=== PATIENT | female | born 1950 | race Caucasian/White ===

== ENCOUNTER 2016-07-18 11:23 | Inpatient (IN) | payer MEDICARE, OTHER ==
--- OUTSIDE RECORDS SUMMARY | 2016-07-18 11:32 | XMS REPORT | Continuity of Care Document ---
:1950 Author Organization [employer] [place] [address] Care Team Providers Name Role Phone Marcia Dumont Primary Care Provider [phone] Source Comments This disclosure is being made pursuant to the [employer] program and maynot contain all information available regarding this patient.[employer] Active Allergies and Adverse Reactions No Known Allergies Current Medications Be aware that medications may not be up to date as of this document. Alwaysverify current medications with the patient. Prescription Sig. Disp. Refills Start Date End Date Status gabapentin Take 1,800 mg Active (NEURONTIN) 600 MG by mouth tablet nightly. lamoTRIgine Take 400 mg by Active (LAMICTAL) 200 MG mouth nightly. tablet pramipexole Take 2 mg by Active (MIRAPEX) 1 MG mouth nightly. tablet levothyroxine Take 75 mcg by Active (SYNTHROID, mouth every LEVOTHROID) 75 MCG morning. tablet irbesartan (AVAPRO) Take 300 mg by Active 300 MG tablet mouth daily. Calcium Take 1 tablet Active Carbonate-Vitamin D by mouth (CALCIUM + D PO) daily. furosemide (LASIX) Take 40 mg by Active 20 MG tablet mouth daily. simvastatin (ZOCOR) Take 40 mg by Active 40 MG tablet mouth nightly. metFORMIN Take 500 mg by Active (GLUCOPHAGE) 500 MG mouth 2 (two) tablet times daily with meals. ibandronate (BONIVA) Take 150 mg by Active 150 MG tablet mouth every 30 (thirty) days. mometasone-formotero Inhale 2 puffs Active l (DULERA) 200-5 into the lungs MCG/ACT AERO inhaler 2 (two) times daily as needed. fexofenadine Take 180 mg by Active (ASIA) 180 MG mouth daily as tablet needed. potassium chloride Take 20 mEq by Active SA (K-DUR,KLOR-CON) mouth daily. 20 MEQ tablet LORazepam (ATIVAN) Take 0.5 mg by Active 0.5 MG tablet mouth every 6 (six) hours as needed for Anxiety. meloxicam (MOBIC) 15 Take 15 mg by Active MG tablet mouth daily. metoprolol tartrate Take 50 mg by Active (LOPRESSOR) 25 MG mouth 2 (two) tablet times daily. ziprasidone (GEODON) Take 40 mg by Active 40 MG capsule mouth every evening. sucralfate Take 1 tablet 120 tablet 4 09/16/2015 Active (CARAFATE) 1 G by mouth 4 tablet (four) times daily. NIFEdipine Take 60 mg by Active (PROCARDIA XL) 60 MG mouth every 24 hr tablet morning. albuterol (PROAIR Inhale 2 puffs Active HFA;PROVENTIL into the lungs HFA;VENTOLIN HFA) every 4 (four) 108 (90 Base) hours as MCG/ACT inhaler needed for Wheezing. conjugated estrogens Place Active (PREMARIN) vaginal vaginally cream daily. Multiple Take 1 capsule Active Vitamins-Minerals by mouth (PRESERVISION AREDS) daily. CAPS capsule baclofen (LIORESAL) Take 10 mg by Active 10 MG tablet mouth 2 (two) times daily. Cyanocobalamin Take 1,000 mcg Active (VITAMIN B 12 PO) by mouth daily. aspirin 325 MG EC Take 325 mg by Active tablet mouth daily. tolterodine (DETROL Take 4 mg by Discontinued LA) 4 MG 24 hr mouth daily. 7 capsule Active Problems Problem Noted Date Hiatal hernia 06/20/2016 Chronic gastroesophageal reflux disease 09/16/2015 Esophageal dysphagia 03/10/2015 Epigastric pain 03/10/2015 Gastritis determined by endoscopy 03/10/2015 Nausea & vomiting 03/24/2014 Abdominal pain 03/24/2014 Gastroesophageal reflux disease 03/24/2014 Rectal bleeding 03/24/2014 Spasm of esophagus 03/24/2014 Gastritis 03/24/2014 Dysphagia, unspecified(787.20) 01/01/2013 Esophageal spasm 01/01/2013 Other specified gastritis without mention of hemorrhage 01/01/2013 Most Recent Encounters Date Type Specialty Providers Description Data Import 7 [facility] James, Anju Encounter MD [facility] G[facility] James, ENDO - 7 MD Lolly ESOPHAGOGASTRODUODENOSCOPY with bx's, with esophageal dilatation with 51 savary Immunizations Name Dates Previously Given Next Due Influenza Split 01/03/2012 Pneumococcal Polysaccharide-23 Td, preservative free 02/16/2010 Social History Tobacco Use Types Packs/Day Years Used Date Former Smoker 2 25 Comments:quit 1992 Alcohol Use Drinks/Week oz/Week Comments No Alcoholic Drinks/day: History of Alcohol Use Denied Last Filed Vital Signs Vital Sign [place] Time Taken Blood Pressure 133/68 06/20/2016 9:32 AM 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 Pulse 83 06/20/2016 9:32 AM 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 Temperature 36.3 C (97.3 F) 06/20/2016 7:53 AM 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 Respiratory Rate 18 06/20/2016 9:32 AM 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 Height 1.562 m (5' 1.5") 06/20/2016 7:53 AM 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 Weight 103.329 kg (227 lb 12.8 oz) 06/20/2016 7:53 AM 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 Body Mass Index 42.35 06/20/2016 7:53 AM 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 Oxygen Saturation 97% 06/20/2016 9:32 AM 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 Plan of Care Health Maintenance Due Date Last Done Comments Mammogram 1998 Well Adult Visit 1998 Zoster Vaccine 60+ 2008 Tetanus/Pertussis (1 - Tdap) 02/17/2010 02/16/2010 Pneumococcal Low/Medium Risk 65+ (1 of 2 - PCV13) 2013 Influenza Immunization (#1) 2015 01/03/2012 Colonoscopy 03/24/2024 03/24/2014 Bone Density Completed 12/15/2015 Procedures from Last 3 Months Procedure Name Priority Date/Time Associated Comments Diagnosis ENDO - ESOPHAGOGASTRODUODENOSCOPY 06/20/2016 8:30 esophageal with bx's, with esophageal AM 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 spasms, hiatal dilatation with 51 savary hernia, gastritis Results from Last 3 Months EKG VIEW RHYTHM STRIP (06/24/2016 10:39 AM)POCT glucose (06/20/2016 8:23 AM) Component Value Range Bedside Glucose 124(H) 70-100 mg/dL Surgical pathology exam (06/20/2016) Narrative CASE: [id number] - SURGICAL PATHOLOGY REPORT - - DIAGNOSIS: A. Duodenum, biopsy: Small intestinal mucosa with preserved villous architecture. Increase of intraepithelial lymphocytes is not appreciated. B. Stomach, biopsy: Inactive chronic gastritis and reactive gastropathy. No Helicobacter organisms identified. Intestinal metaplasia and dysplasia are not appreciated. C. Esophagus, biopsy: Gastric mucosa with mild inactive chronic gastritis. Intestinal metaplasia or dysplasia is not appreciated. Squamous epithelium is not identified. - - - CLINICAL INFORMATION: Pre-op: Esophageal dysphagia - GROSS EXAMINATION: Gross examination performed at [facility], [address] [place] [id number] AN Part A: The specimen container is labeled "duodenal bx." Received in formalin are two stauffer tissue fragments. The largest measuring 0.4 x 0.4 x 0.1 cm. The specimen is entirely submitted in block A in a mesh bag. Part B: The specimen container is labeled "gastric bx." Received in formalin are two stauffer tissue fragments. The largest measuring 0.6 x 0.3 x 0.1 cm. The specimen is entirely submitted in block B in a mesh bag. Part C: The specimen container is labeled "esophageal bx." Received in formalin is a single stauffer tissue fragment measuring 0.6 x 0.4 x 0.1 cm. The specimen is entirely submitted in block C in a mesh bag. - MICROSCOPIC EXAMINATION: Microscopic examination performed at [facility], [address] [place] [address]. Immunostain for H. pylori is performed in part B with satisfactory controls, and it is negative. A PAS/Alcian blue stain is performed in part C with satisfactory controls and is negative for goblet cells and fungi. - - - Final Diagnosis performed by Luz Elena Wetzel M.D. Pathologist Electronically signed 06/22/2016 1:48:15PM - -
--- OUTSIDE RECORDS SUMMARY | 2016-07-18 11:33 | XMS REPORT | Continuity of Care Document ---
:1950 Author Organization [facility] ([facility]) Address [address] [place] [address] Phone [phone] Care Team Providers Name Role Phone Marcia Dumont Primary Care Provider [phone] Source Comments This disclosure is being made pursuant to the Care Everywhere program, applicable federal and state laws, and may not contain all informaitonavailable regarding this patient.[facility] ([facility]) Active Allergies and Adverse Reactions Allergen Noted Date Severity Reactions Comments Adhesive Tape-Silicones 07/09/2015 Rash "PAPER TAPE" Animal Dander 07/09/2015 OTHER Mold 07/09/2015 Asthma Trees 07/09/2015 Asthma Current Medications Prescription Sig. Disp. Refills Start Date End Date Status potassium chloride Take 20 mEq by mouth Active (KLOR-CON) 20 mEq daily. packet levothyroxine Take 75 mcg by mouth Active (LEVOTHROID) 75 mcg every morning before tablet breakfast. gabapentin 50 mg/mL Take 1,200 mg by Active solution mouth 3 times daily. pramipexole 1 mg Take 1 mg by mouth 3 Active tablet times daily. simvastatin (ZOCOR) Take 10 mg by mouth Active 10 mg tablet every evening. lamoTRIgine 200 mg Take 400 mg by mouth Active tablet daily. amLODIPine (NORVASC) Take 10 mg by mouth Active 10 mg tablet daily. furosemide 20 mg Take 0.5 Tabs by 15 Tab 5 03/04/2012 Active tablet mouth daily. Indications: EDEMA, HYPERTENSION estrogens, Daily x2 weeks, 30 g 11 04/02/2015 Active conjugated M/W/F x2 weeks, then (PREMARIN) 0.625 twice weekly after mg/gram vaginal that time cream metoPROLol succinate Take 50 mg by mouth Active 50 mg XL tablet 2 times daily. irbesartan 300 mg 08/10/2015 Active tablet LORazepam 0.5 mg 07/26/2015 Active tablet CALCIUM Active CARBONATE/VITAMIN D2 (CALCIUM + VITAMIN D PO) fexofenadine 180 mg Take 180 mg by mouth Active tablet daily. ibandronate 150 mg Take 150 mg by mouth Active tablet every month. meloxicam 15 mg Take 15 mg by mouth Active tablet daily. mometasone-formotero Use 2 Puffs by Active l (DULERA 200-5) inhalation 2 times inhaler daily. ziprasidone 40 mg Take 40 mg by mouth Active capsule 2 times daily. aspirin 325 mg Take 325 mg by mouth Active tablet daily. lisinopril 40 mg Take 40 mg by mouth Active tablet daily. oxyCODONE-acetaminop Take 1-2 tablets by 45 tablet 0 02/26/2016 Active hen 5-325 mg per mouth every 6 hours tablet as needed for Pain. Do Not exceed 4000 mg of acetaminophen per 24 hours. sucralfate PO Active Active Problems Problem Noted Date Urge incontinence 02/11/2016 OAB (overactive bladder) 10/23/2015 Diplopia 03/02/2012 Unspecified cerebral artery occlusion with cerebral infarction 03/02/2012 Limb weakness 03/02/2012 CAD (coronary artery disease) 03/02/2012 Prediabetes 03/02/2012 Most Recent Encounters Date Type Specialty Providers Description 04/27/2016 Office Visit [facility] Konrad Law MD Dx: Urge incontinence (Primary Dx) 04/21/2016 Office Visit [facility] U[facility]necology Konrad Law MD Dx: Urge incontinence (Primary Dx) Social History Tobacco Use Types Packs/Day Years Used Date Former Smoker Cigarettes 2 25 Quit: 10/15/1992 Smokeless Tobacco: Never Used Tobacco Cessation:Counseling Given: Yes Comments: Alcohol Use Drinks/Week oz/Week Comments No 1 Glasses of wine 0.0 Last Filed Vital Signs Vital Sign [place] Time Taken Blood Pressure 138/78 04/27/2016 9:18 AM 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 Pulse 79 04/27/2016 9:18 AM 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 Temperature 37 C (98.6 F) 02/26/2016 12:00 PM 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 Respiratory Rate 20 02/26/2016 12:45 PM 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 Height 1.562 m (5' 1.5") 02/04/2016 1:19 PM CDT Weight 100.1 kg (220 lb 10.9 oz) 04/27/2016 9:18 AM 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 Body Mass Index 41.03 04/27/2016 9:18 AM 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 Oxygen Saturation 96% 02/26/2016 12:45 PM 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 Plan of Care Date Type Specialty Providers Description 08/10/2016 Appointment [facility] Konrad Law MD Chief Comp: Patient [address] [place] [address] Visit [phone] (Fax) Health Maintenance Due Date Last Done Comments HCV Screening 1950 Hepatitis B Vaccine (1 of 3 - Primary Series) 1950 Tdap Vaccine 08/15/1959 Td Vaccine 1966 Mammogram 1988 Colonoscopy 1998 Zoster Vaccine 2008 Osteoporosis Screening (DXA Bone Density) 2013 Pneumococcal Vaccine (1 of 2 - PCV13) 2013 Influenza Vaccine: Seasonal (#1) 11/16/2015 Lipid Disorder Screening 03/03/2017 03/03/2012 Results from Last 3 Months Not on file
[2016-07-18 12:18] LABS: Hematocrit 38.1 % (37.0-47.0); Mean Cell Volume 89.9 fl (78-100); Mean Corpuscular Hemoglobin 28.3 pg (27-31); Mean Corpuscular Hgb Conc 31.5 g/dl (32-36); Mean Platelet Volume 9.4 fl (6.0-9.5); Neutrophil # 5.9 K/mm3 (1.3-6.0); Platelet Count 291 K/mm3 (150-450); Red Blood Count 4.24 M/mm3 (4.2-5.4); Red Cell Distribution Width 13.6 % (11.5-14.0); White Blood Count 9.3 K/mm3 (4.0-10.5)
[2016-07-18 12:46] LABS: Albumin * 3.6 gm/dl (3.4-5.0); Anion Gap 12.3 mmol/L (6.8-13.8); Bilirubin, Total 0.3 mg/dL (0.0-1.1); Ca. Corrected For Albumin 9.6 mg/dL (8.4-10.2); Calcium * 9.6 mg/dL (7.9-10.9); Potassium 4.3 mmol/L (3.4-4.6)
[2016-07-18] MEDS: METHYLPREDNISOLONE SOD SUCC 60 MG in WATER FOR INJ.,BACTERIOSTATIC 0 ML IV SCH ×2 (13:28→19:24)
[2016-07-18] MEDS ORDERED: ALBUTEROL SULFATE 2.5 MG/3 ML VIAL.NEB IH PRN (14:33)
[2016-07-18] MEDS ORDERED: LORazepam 0.5 MG TABLET PO PRN (14:34)
[2016-07-18] MEDS: ALBUTEROL SULFATE/IPRATROPIUM 3 ML NEBU IH SCH ×3 (14:35→23:33)
[2016-07-18] MEDS ORDERED: IBANDRONATE SODIUM 150 MG PO SCH (14:45)
[2016-07-18] MEDS: GABAPENTIN 600 MG TABLET PO SCH (17:10)
[2016-07-18] MEDS: BENZONATATE 100 MG CAPSULE PO SCH (17:10)
[2016-07-18] MEDS: ZIPRASIDONE HCL 40 MG CAPSULE PO SCH (17:10)
[2016-07-18] MEDS: metFORMIN HCL 500 MG TABLET PO SCH (17:11)
[2016-07-18] MEDS: SIMVASTATIN 10 MG TABLET PO SCH (21:10)
[2016-07-19] MEDS: METHYLPREDNISOLONE SOD SUCC 60 MG in WATER FOR INJ.,BACTERIOSTATIC 0 ML IV SCH ×4 (01:02→19:00)
[2016-07-19] MEDS: ALBUTEROL SULFATE/IPRATROPIUM 3 ML NEBU IH SCH ×5 (02:27→18:23)
[2016-07-19] MEDS: PANTOPRAZOLE SODIUM 40 MG TABLET.EC PO SCH (08:35)
[2016-07-19] MEDS: metFORMIN HCL 500 MG TABLET PO SCH (08:45)
[2016-07-19] MEDS: METOPROLOL SUCCINATE 100 MG TABLET.SA PO SCH (08:46)
[2016-07-19] MEDS: BETA-CAROTENE(A) W-C , E/MIN 1 TAB TABLET PO SCH (08:48)
[2016-07-19] MEDS: LOSARTAN POTASSIUM 50 MG TABLET PO SCH (08:48)
[2016-07-19] MEDS: CHOLECALCIFEROL 1,000 UNIT CAPSULE PO SCH (08:49)
[2016-07-19] MEDS: amLODIPine BESYLATE 10 MG TABLET PO SCH (08:50)
[2016-07-19] MEDS: CYANOCOBALAMIN 1,000 MCG TABLET PO SCH (08:50)
[2016-07-19] MEDS: GABAPENTIN 600 MG TABLET PO SCH ×3 (08:51→17:00)
[2016-07-19] MEDS: BENZONATATE 100 MG CAPSULE PO SCH ×3 (08:51→17:01)
[2016-07-19] MEDS: FUROSEMIDE 40 MG TABLET PO SCH (08:51)
[2016-07-19] MEDS: LORATADINE 10 MG TABLET PO SCH (08:52)
[2016-07-19] MEDS: PRAMIPEXOLE DI-HCL 0.5 MG TABLET PO SCH (08:52)
[2016-07-19 08:53] LABS: Hematocrit 38.4 % (37.0-47.0); Mean Cell Volume 89.9 fl (78-100); Mean Corpuscular Hemoglobin 28.1 pg (27-31); Mean Corpuscular Hgb Conc 31.3 g/dl (32-36); Mean Platelet Volume 9.5 fl (6.0-9.5); Neutrophil # 12.7 K/mm3 (1.3-6.0); Neutrophil % 89.8 % (42-75.0); Platelet Count 313 K/mm3 (150-450); Red Blood Count 4.27 M/mm3 (4.2-5.4); Red Cell Distribution Width 13.8 % (11.5-14.0); White Blood Count 14.2 K/mm3 (4.0-10.5)
[2016-07-19] MEDS: NIFEdipine 30 MG TAB.SR.24H PO SCH (08:53)
[2016-07-19] MEDS: TOLTERODINE TARTRATE 4 MG CAPSULE PO SCH (08:54)
[2016-07-19] MEDS ORDERED: lamoTRIgine 100 MG TABLET PO SCH (09:00)
[2016-07-19] MEDS ORDERED: LISINOPRIL 40 MG TABLET PO SCH (09:00)
[2016-07-19 09:03] LABS: Anion Gap 20.2 mmol/L (6.8-13.8); BUN/Creatinine Ratio 15.9 (9.0-21.6); Calcium * 9.7 mg/dL (7.9-10.9); Carbon Dioxide 21.8 mmol/L (24-32.6); Estimated Creat Clear 29.9
[2016-07-19] MEDS: LEVOTHYROXINE SODIUM 75 MCG TABLET PO SCH (09:08)
[2016-07-19] MEDS ORDERED: ACETAMINOPHEN 325 MG TABLET PO PRN (12:13)
--- NOTE | 2016-07-19 12:48 | PN ---
Progess Note - Interim Narrative: 07/19/16 12:47 Patient still coughing a lot with chest tightness and pain. Will start cristobals Casi.
[2016-07-19] MEDS: ZIPRASIDONE HCL 40 MG CAPSULE PO SCH (17:01)
--- NOTE | 2016-07-19 17:25 | PN ---
Subjective - Date and Time Seen Date: 07/19/16 Time: 17:25 Subjective Narrative: Patient still SOB and wheezing. Objective - Review of Systems Generalized/Overall Review: Denies: Chills, Fever EENTM: Reports: No Symptoms Reported Respiratory: Reports: Cough, Shortness of Breath, Wheezing Cardiac: Denies: Chest Pain, Edema, Palpitations Abdominal: Denies: Nausea, Vomiting Genitourinary Symptoms: Denies: Urgency, Frequency Musculoskeletal Complaints: Denies: Joint Pain - Vitals Vitals: Last Vital Signs Temp 36.7 C 07/19/16 15:04 Pulse 115 H 07/19/16 15:04 Resp 18 07/19/16 15:04 BP 178/78 07/19/16 15:04 Pulse Ox 95 07/19/16 15:04 - Abnormal Lab Findings Abnormal Lab Findings: Abnormal Lab Results 07/19/16 07/19/16 07/19/16 Range/Units 08:40 08:40 12:43 WBC 14.2 H D (4.0-10.5) K/mm3 Hgb 12.0 L (12.5-16.0) gm/dL MCHC 31.3 L (32-36) g/dl Immature Gran % (Auto) 2.20 H (0.001-0.429) % Immature Gran # (Auto) 0.31 H (0.000-0.0310) K/mm3 Neutrophils % 89.8 H (42-75.0) % Lymphocytes % 5.3 L (20-51) % Neutrophils # 12.7 H (1.3-6.0) K/mm3 Lymphocytes # 0.8 L (1.5-3.5) k/mm3 pCO2 28.6 L (32.0-45.0) mmHg pO2 74.5 L (83.0-108.0) mmHg HCO3 19.1 L (21.0-28.0) mmol/L Base Excess -3.8 L (-2.0-3.0) mmol/L Carbon Dioxide 21.8 L (24-32.6) mmol/L Anion Gap 20.2 H (6.8-13.8) mmol/L Est GFR (Non-Af Amer) 41 L D (60-130) mL/min Random Glucose 378 H D (70-110) mg/dL Lactic Acid, Venous (0.4-1.9) mmol/L 07/19/16 Range/Units 14:30 WBC (4.0-10.5) K/mm3 Hgb (12.5-16.0) gm/dL MCHC (32-36) g/dl Immature Gran % (Auto) (0.001-0.429) % Immature Gran # (Auto) (0.000-0.0310) K/mm3 Neutrophils % (42-75.0) % Lymphocytes % (20-51) % Neutrophils # (1.3-6.0) K/mm3 Lymphocytes # (1.5-3.5) k/mm3 pCO2 (32.0-45.0) mmHg pO2 (83.0-108.0) mmHg HCO3 (21.0-28.0) mmol/L Base Excess (-2.0-3.0) mmol/L Carbon Dioxide (24-32.6) mmol/L Anion Gap (6.8-13.8) mmol/L Est GFR (Non-Af Amer) (60-130) mL/min Random Glucose (70-110) mg/dL Lactic Acid, Venous 6.6 H* (0.4-1.9) mmol/L - Exam Constitutional: Present: Alert, Oriented x3, Cooperative ENT Exam: Present: hearing grossly normal Neck: Present: supple Breasts: Present: Exam deferred Respiratory: Present: decreased breath sounds, wheezing, expiration (prolonged) , No rales Cardiovascular/Chest: Present: regular rate, rhythm, no murmur, no rub Abdomen: Present: Normal bowel sounds, soft, nontender, nondistended Extremity: Present: no pedal edema, no calf tenderness Assessment/Plan - Problems/Diagnosis (1) Acute exacerbation of chronic obstructive pulmonary disease (COPD) Problem: Acute Narrative: likely acute bronchitis. failed outpatient therapy with Zpac and Prednisone. no Pneumonia on CXR. continue with IV solumedrol, IV antibiotics and breathing treatments. will do ABG and likely will change to acute. ADDENDUM: ABG showed Acute respiratory alkalosis with anion gap metabolic acidosis. will get lactic acid and serum ketones to r/o DKA. (2) Lactic acid acidosis Problem: Acute Narrative: Lactic acid came back elevated . negative serum ketones. Lactic acidosis likely due to Metformin. will hold it . r/o due to sepsis. CXR and UA reordered. (3) COPD (chronic obstructive pulmonary disease) Problem: Acute Qualifiers: COPD type: chronic bronchitis Chronic bronchitis type: unspecified Qualified Code(s): J42 - Unspecified chronic bronchitis (4) Diabetes mellitus type 2 in obese Problem: Chronic (5) Hypertension Problem: Chronic Qualifiers: Hypertension type: essential hypertension Qualified Code(s): I10 - Essential (primary) hypertension (6) Bipolar 1 disorder Problem: Chronic (7) LUDY (obstructive sleep apnea) Problem: Chronic (8) Hyperlipidemia Problem: Chronic Qualifiers: Hyperlipidemia type: mixed hyperlipidemia Qualified Code(s): E78.2 - Mixed hyperlipidemia (9) Restless leg syndrome Problem: Chronic
[2016-07-19 19:59] LABS: Urine Bilirubin Negative (NEGATIVE); Urine Blood Negative /ul (NEGATIVE); Urine Ketone Negative (NEGATIVE); Urine Nitrite Negative (NEGATIVE); Urine Protein Negative (NEGATIVE); Urine Specific Gravity 1.025 SP.GR. (1.005-1.010); Urine Urobilinogen Normal (NORMAL); Urine pH 5.5 pH (5.0-7.0)
[2016-07-19 20:12] LABS: Urine Appearance Clear; Urine Bacteria TRACE; Urine Color Yellow; Urine Hyaline Cast 0-5 /LPF; Urine RBC None Seen /hpf (0-5); Urine WBC None Seen /hpf (0-5)
[2016-07-19] MEDS ORDERED: LEVALBUTEROL HCL 1.25 MG/3 ML AMPUL IH SCH (20:45)
[2016-07-19] MEDS: SIMVASTATIN 10 MG TABLET PO SCH (20:48)
[2016-07-19] MEDS ORDERED: LEVALBUTEROL HCL 1.25 MG/3 ML AMPUL IH ONE (20:54)
[2016-07-19] MEDS: HYDROcodone/CHLORPHEN P-STIREX 5 ML UDC PO PRN (21:04)
[2016-07-19] MEDS: INSULIN REGULAR, HUMAN 100 UNITS/ML VIAL SC SCH (21:08)
[2016-07-20] MEDS: LEVALBUTEROL HCL 1.25 MG/3 ML AMPUL IH SCH ×4 (00:40→18:11)
[2016-07-20] MEDS: METHYLPREDNISOLONE SOD SUCC 60 MG in WATER FOR INJ.,BACTERIOSTATIC 0 ML IV SCH ×4 (00:57→19:06)
[2016-07-20 05:42] LABS: Hematocrit 37.7 % (37.0-47.0); Hemoglobin 11.9 gm/dL (12.5-16.0); Mean Cell Volume 89.8 fl (78-100); Mean Corpuscular Hemoglobin 28.3 pg (27-31); Mean Corpuscular Hgb Conc 31.6 g/dl (32-36); Mean Platelet Volume 9.7 fl (6.0-9.5); Neutrophil # 14.8 K/mm3 (1.3-6.0); Neutrophil % 90.2 % (42-75.0); Platelet Count 319 K/mm3 (150-450); Red Cell Distribution Width 14.2 % (11.5-14.0); White Blood Count 16.3 K/mm3 (4.0-10.5)
[2016-07-20 06:04] LABS: BUN/Creatinine Ratio 27.2 (9.0-21.6); Carbon Dioxide 27.6 mmol/L (24-32.6); Potassium 4.6 mmol/L (3.4-4.6)
[2016-07-20] MEDS: PANTOPRAZOLE SODIUM 40 MG TABLET.EC PO SCH (06:29)
[2016-07-20] MEDS: LEVOTHYROXINE SODIUM 75 MCG TABLET PO SCH (06:29)
[2016-07-20] MEDS: INSULIN REGULAR, HUMAN 100 UNITS/ML VIAL SC SCH ×4 (07:34→21:13)
--- NOTE | 2016-07-20 08:48 | PN ---
Progess Note - Interim Narrative: 07/20/16 08:47 Patient's Lactic acid still elevated but improved, still tachycardic, still wheezy but less than yesterday. continue to hold metformin.
[2016-07-20 09:23] LABS: Albumin * 3.6 gm/dl (3.4-5.0); Bilirubin Direct 0.1 mg/dL (0.0-0.3); Bilirubin, Total 0.3 mg/dL (0.0-1.1); Bilirubin,Indirect 0.2 mg/dL (0.1-0.7); Total Protein 7.1 gm/dL (6.2-8.2)
[2016-07-20] MEDS: NIFEdipine 30 MG TAB.SR.24H PO SCH (10:00)
[2016-07-20] MEDS: LOSARTAN POTASSIUM 50 MG TABLET PO SCH (10:05)
[2016-07-20] MEDS: PRAMIPEXOLE DI-HCL 0.5 MG TABLET PO SCH (10:06)
[2016-07-20] MEDS: FUROSEMIDE 40 MG TABLET PO SCH (10:07)
[2016-07-20] MEDS: GABAPENTIN 600 MG TABLET PO SCH ×3 (10:07→21:13)
[2016-07-20] MEDS: amLODIPine BESYLATE 10 MG TABLET PO SCH (10:08)
[2016-07-20] MEDS: TOLTERODINE TARTRATE 4 MG CAPSULE PO SCH (10:08)
[2016-07-20] MEDS: METOPROLOL SUCCINATE 100 MG TABLET.SA PO SCH (10:09)
[2016-07-20] MEDS: LORATADINE 10 MG TABLET PO SCH (10:10)
[2016-07-20] MEDS: BENZONATATE 100 MG CAPSULE PO SCH ×3 (10:11→16:12)
[2016-07-20] MEDS: CYANOCOBALAMIN 1,000 MCG TABLET PO SCH (10:11)
[2016-07-20] MEDS: CHOLECALCIFEROL 1,000 UNIT CAPSULE PO SCH (10:12)
[2016-07-20] MEDS: BETA-CAROTENE(A) W-C , E/MIN 1 TAB TABLET PO SCH (10:12)
[2016-07-20] MEDS: LEVOFLOXACIN 500 MG TABLET PO SCH (10:16)
--- NOTE | 2016-07-20 10:33 | PN ---
Subjective - Date and Time Seen Date: 07/20/16 Time: 10:27 Subjective Narrative: Patient is still SOB but less whezzy and less coughing. Her lactic acid is still elevated but improved. Less tachycardic. Objective - Review of Systems Generalized/Overall Review: Denies: Chills, Fever EENTM: Reports: No Symptoms Reported Respiratory: Reports: Cough, Shortness of Breath, Wheezing Cardiac: Denies: Chest Pain, Edema, Palpitations Abdominal: Denies: Nausea, Vomiting Genitourinary Symptoms: Denies: Urgency, Frequency - Vitals Vitals: Last Vital Signs Temp 36.5 C 07/20/16 10:00 Pulse 99 07/20/16 10:09 Resp 18 07/20/16 10:00 BP 139/66 07/20/16 10:09 Pulse Ox 95 07/20/16 10:00 - Abnormal Lab Findings Abnormal Lab Findings: Abnormal Lab Results 07/19/16 07/19/16 07/19/16 Range/Units 12:43 14:30 17:40 WBC (4.0-10.5) K/mm3 Hgb (12.5-16.0) gm/dL MCHC (32-36) g/dl RDW (11.5-14.0) % MPV (6.0-9.5) fl Immature Gran % (Auto) (0.001-0.429) % Immature Gran # (Auto) (0.000-0.0310) K/mm3 Neutrophils % (42-75.0) % Lymphocytes % (20-51) % Neutrophils # (1.3-6.0) K/mm3 Lymphocytes # (1.5-3.5) k/mm3 pCO2 28.6 L (32.0-45.0) mmHg pO2 74.5 L (83.0-108.0) mmHg HCO3 19.1 L (21.0-28.0) mmol/L Base Excess -3.8 L (-2.0-3.0) mmol/L Plasma Sodium (130-142) mmol/L BUN (3-23) mg/dL Est GFR (Non-Af Amer) (60-130) mL/min BUN/Creatinine Ratio (9.0-21.6) Random Glucose (70-110) mg/dL Lactic Acid, Venous 6.6 H* 6.1 H* (0.4-1.9) mmol/L Hyaline Casts (NONE) /LPF 07/19/16 07/20/16 07/20/16 Range/Units 19:55 05:42 05:42 WBC 16.3 H (4.0-10.5) K/mm3 Hgb 11.9 L (12.5-16.0) gm/dL MCHC 31.6 L (32-36) g/dl RDW 14.2 H (11.5-14.0) % MPV 9.7 H (6.0-9.5) fl Immature Gran % (Auto) 1.60 H (0.001-0.429) % Immature Gran # (Auto) 0.26 H (0.000-0.0310) K/mm3 Neutrophils % 90.2 H (42-75.0) % Lymphocytes % 5.3 L (20-51) % Neutrophils # 14.8 H (1.3-6.0) K/mm3 Lymphocytes # 0.9 L (1.5-3.5) k/mm3 pCO2 (32.0-45.0) mmHg pO2 (83.0-108.0) mmHg HCO3 (21.0-28.0) mmol/L Base Excess (-2.0-3.0) mmol/L Plasma Sodium 143 H (130-142) mmol/L BUN 28 H (3-23) mg/dL Est GFR (Non-Af Amer) 57 L D (60-130) mL/min BUN/Creatinine Ratio 27.2 H (9.0-21.6) Random Glucose 289 H (70-110) mg/dL Lactic Acid, Venous (0.4-1.9) mmol/L Hyaline Casts 0-5 H (NONE) /LPF 07/20/16 Range/Units 05:42 WBC (4.0-10.5) K/mm3 Hgb (12.5-16.0) gm/dL MCHC (32-36) g/dl RDW (11.5-14.0) % MPV (6.0-9.5) fl Immature Gran % (Auto) (0.001-0.429) % Immature Gran # (Auto) (0.000-0.0310) K/mm3 Neutrophils % (42-75.0) % Lymphocytes % (20-51) % Neutrophils # (1.3-6.0) K/mm3 Lymphocytes # (1.5-3.5) k/mm3 pCO2 (32.0-45.0) mmHg pO2 (83.0-108.0) mmHg HCO3 (21.0-28.0) mmol/L Base Excess (-2.0-3.0) mmol/L Plasma Sodium (130-142) mmol/L BUN (3-23) mg/dL Est GFR (Non-Af Amer) (60-130) mL/min BUN/Creatinine Ratio (9.0-21.6) Random Glucose (70-110) mg/dL Lactic Acid, Venous 3.3 H* (0.4-1.9) mmol/L Hyaline Casts (NONE) /LPF - Exam Constitutional: Present: Alert, Oriented x3, Cooperative, Mild distress, Obese ENT Exam: Present: hearing grossly normal Neck: Present: supple Breasts: Present: Exam deferred Respiratory: Present: decreased breath sounds, wheezing. Absent: crackles Cardiovascular/Chest: Present: regular rate, rhythm, no JVD, no murmur Abdomen: Present: Normal bowel sounds, soft, nontender, nondistended Extremity: Present: no pedal edema, no calf tenderness Assessment/Plan - Problems/Diagnosis (1) Leukocytosis Problem: Acute Qualifiers: Leukocytosis type: unspecified Qualified Code(s): D72.829 - Elevated white blood cell count, unspecified Narrative: due to steroids on top of her acute bronchitis. CXR - no pneumonia. UA - no UTI. no skin breakdown. (2) Acute exacerbation of chronic obstructive pulmonary disease (COPD) Problem: Acute Narrative: continue with IV solumedrol, IV antibiotics, breathing trreatments.. will add levaquin. (3) Lactic acid acidosis Problem: Acute Narrative: 6.6 to 6.1 to 3.3. improving . continue to hold metformin. ABG showed respiratory alkalosis with AG Metabolic acidosis. unlikely due to DKA. (4) COPD (chronic obstructive pulmonary disease) Problem: Acute Qualifiers: COPD type: chronic bronchitis Chronic bronchitis type: unspecified Qualified Code(s): J42 - Unspecified chronic bronchitis (5) Diabetes mellitus type 2 in obese Problem: Chronic (6) Hypertension Problem: Chronic Qualifiers: Hypertension type: essential hypertension Qualified Code(s): I10 - Essential (primary) hypertension (7) Bipolar 1 disorder Problem: Chronic (8) LUDY (obstructive sleep apnea) Problem: Chronic (9) Hyperlipidemia Problem: Chronic Qualifiers: Hyperlipidemia type: mixed hyperlipidemia Qualified Code(s): E78.2 - Mixed hyperlipidemia (10) Restless leg syndrome Problem: Chronic
[2016-07-20] MEDS: ENOXAPARIN SODIUM 40 MG/0.4 ML SYRG SC SCH (16:06)
[2016-07-20] MEDS: ZIPRASIDONE HCL 40 MG CAPSULE PO SCH (16:10)
[2016-07-20] MEDS: HYDROcodone/CHLORPHEN P-STIREX 5 ML UDC PO PRN (19:05)
[2016-07-20] MEDS: lamoTRIgine 100 MG TABLET PO SCH (21:13)
[2016-07-20] MEDS: SIMVASTATIN 10 MG TABLET PO SCH (21:14)
[2016-07-21] MEDS: METHYLPREDNISOLONE SOD SUCC 60 MG in WATER FOR INJ.,BACTERIOSTATIC 0 ML IV SCH ×2 (01:37→06:17)
[2016-07-21] MEDS: LEVALBUTEROL HCL 1.25 MG/3 ML AMPUL IH SCH ×2 (06:08)
[2016-07-21] MEDS: LEVOTHYROXINE SODIUM 75 MCG TABLET PO SCH (06:16)
[2016-07-21] MEDS: PANTOPRAZOLE SODIUM 40 MG TABLET.EC PO SCH (06:17)
[2016-07-21] MEDS: INSULIN REGULAR, HUMAN 100 UNITS/ML VIAL SC SCH ×4 (07:30→20:28)
[2016-07-21] MEDS: HYDROcodone/CHLORPHEN P-STIREX 5 ML UDC PO PRN ×2 (07:32→20:25)
[2016-07-21 08:19] LABS: Hematocrit 38.2 % (37.0-47.0); Mean Cell Volume 90.3 fl (78-100); Mean Corpuscular Hemoglobin 28.4 pg (27-31); Mean Corpuscular Hgb Conc 31.4 g/dl (32-36); Mean Platelet Volume 9.6 fl (6.0-9.5); Neutrophil # 17.3 K/mm3 (1.3-6.0); Neutrophil % 91.6 % (42-75.0); Platelet Count 352 K/mm3 (150-450); Red Blood Count 4.23 M/mm3 (4.2-5.4); Red Cell Distribution Width 14.1 % (11.5-14.0); White Blood Count 18.9 K/mm3 (4.0-10.5)
[2016-07-21 08:37] LABS: Anion Gap 17.4 mmol/L (6.8-13.8); BUN/Creatinine Ratio 27.2 (9.0-21.6); Calcium * 9.3 mg/dL (7.9-10.9); Estimated Creat Clear 26.1; Potassium 4.4 mmol/L (3.4-4.6)
--- NOTE | 2016-07-21 08:49 | PN ---
Subjective - Date and Time Seen Date: 07/21/16 Time: 08:44 Subjective Narrative: Patient says she had a setback. She started coughing again last night for 3 hours. WBC is up further. Objective - Review of Systems Generalized/Overall Review: Denies: Chills, Fever EENTM: Reports: No Symptoms Reported Respiratory: Reports: Cough, Wheezing Cardiac: Denies: Chest Pain, Edema, Palpitations Abdominal: Denies: Nausea, Vomiting Genitourinary Symptoms: Denies: Urgency, Frequency - Vitals Vitals: Last Vital Signs Temp 36.8 C 07/21/16 08:26 Pulse 100 07/21/16 08:26 Resp 24 H 07/21/16 08:26 BP 147/80 07/21/16 08:26 Pulse Ox 93 07/21/16 08:26 - Abnormal Lab Findings Abnormal Lab Findings: Abnormal Lab Results 07/21/16 07/21/16 Range/Units 08:17 08:17 WBC 18.9 H (4.0-10.5) K/mm3 Hgb 12.0 L (12.5-16.0) gm/dL MCHC 31.4 L (32-36) g/dl RDW 14.1 H (11.5-14.0) % MPV 9.6 H (6.0-9.5) fl Immature Gran % (Auto) 1.70 H (0.001-0.429) % Immature Gran # (Auto) 0.33 H (0.000-0.0310) K/mm3 Neutrophils % 91.6 H (42-75.0) % Lymphocytes % 3.4 L (20-51) % Neutrophils # 17.3 H (1.3-6.0) K/mm3 Lymphocytes # 0.7 L (1.5-3.5) k/mm3 Anion Gap 17.4 H (6.8-13.8) mmol/L BUN 43 H D (3-23) mg/dL Creatinine 1.58 H D (0.4-1.4) mg/dL Est GFR (Non-Af Amer) 35 L D (60-130) mL/min BUN/Creatinine Ratio 27.2 H (9.0-21.6) Random Glucose 356 H (70-110) mg/dL - Exam Constitutional: Present: Alert, Oriented x3, Cooperative ENT Exam: Present: hearing grossly normal Neck: Present: supple Breasts: Present: Exam deferred Respiratory: Present: crackles, wheezing - ocassional Cardiovascular/Chest: Present: regular rate, rhythm, no JVD, no murmur Abdomen: Present: Normal bowel sounds, soft, nontender, nondistended Extremity: Present: no pedal edema, no calf tenderness Assessment/Plan - Problems/Diagnosis (1) Leukocytosis Problem: Acute Qualifiers: Leukocytosis type: unspecified Qualified Code(s): D72.829 - Elevated white blood cell count, unspecified Narrative: steroids/pneumonitis/bronchitis. Continue Roephin , levaquin added. will d/c IV steroids. start back on her inhaler and oral prednisone. (2) Acute exacerbation of chronic obstructive pulmonary disease (COPD) Problem: Acute (3) Lactic acid acidosis Problem: Acute Narrative: lab pending. ADDENDUM : her lactic acid is up again likely due to her RTC B- agonist. Will d/c levarbuterol and start her on ipratropium neb. continue to hold metformin. will add serum ketones again to labs this morning. (4) COPD (chronic obstructive pulmonary disease) Problem: Acute Qualifiers: COPD type: chronic bronchitis Chronic bronchitis type: unspecified Qualified Code(s): J42 - Unspecified chronic bronchitis (5) Diabetes mellitus type 2 in obese Problem: Chronic Narrative: on accucheck with insulin coverage/lantus added. metformin on hold. (6) Hypertension Problem: Chronic Qualifiers: Hypertension type: essential hypertension Qualified Code(s): I10 - Essential (primary) hypertension (7) Bipolar 1 disorder Problem: Chronic (8) LUDY (obstructive sleep apnea) Problem: Chronic (9) Hyperlipidemia Problem: Chronic Qualifiers: Hyperlipidemia type: mixed hyperlipidemia Qualified Code(s): E78.2 - Mixed hyperlipidemia (10) Restless leg syndrome Problem: Chronic
[2016-07-21] MEDS ORDERED: FLUTICASONE/SALMETEROL 14 PUFF DISK.W.DEV IH SCH (09:00)
[2016-07-21] MEDS ORDERED: ALBUTEROL SULFATE 2.5 MG/3 ML VIAL.NEB IH SCH (09:01)
[2016-07-21] MEDS ORDERED: IPRATROPIUM BROMIDE 0.5 MG/2.5 ML VIAL.NEB IH PRN (09:02)
[2016-07-21] MEDS: PRAMIPEXOLE DI-HCL 0.5 MG TABLET PO SCH (09:13)
[2016-07-21] MEDS: LOSARTAN POTASSIUM 50 MG TABLET PO SCH (09:14)
[2016-07-21] MEDS: LORATADINE 10 MG TABLET PO SCH (09:14)
[2016-07-21] MEDS: NIFEdipine 30 MG TAB.SR.24H PO SCH (09:16)
[2016-07-21] MEDS: amLODIPine BESYLATE 10 MG TABLET PO SCH (09:17)
[2016-07-21] MEDS: TOLTERODINE TARTRATE 4 MG CAPSULE PO SCH (09:17)
[2016-07-21] MEDS: BENZONATATE 100 MG CAPSULE PO SCH ×3 (09:17→17:31)
[2016-07-21] MEDS: BETA-CAROTENE(A) W-C , E/MIN 1 TAB TABLET PO SCH (09:18)
[2016-07-21] MEDS: CYANOCOBALAMIN 1,000 MCG TABLET PO SCH (09:18)
[2016-07-21] MEDS: GABAPENTIN 600 MG TABLET PO SCH ×3 (09:18→20:23)
[2016-07-21] MEDS: CHOLECALCIFEROL 1,000 UNIT CAPSULE PO SCH (09:19)
[2016-07-21] MEDS: FUROSEMIDE 40 MG TABLET PO SCH (09:19)
[2016-07-21] MEDS: METOPROLOL SUCCINATE 100 MG TABLET.SA PO SCH (09:20)
[2016-07-21] MEDS: MOMETASONE FUROATE 120 SPRAY INHALER NS SCH (09:21)
[2016-07-21] MEDS: INSULIN GLARGINE,HUM.REC.ANLOG 100 UNITS/ML VIAL SC SCH (09:25)
[2016-07-21] MEDS: LEVOFLOXACIN 500 MG TABLET PO SCH (11:01)
[2016-07-21] MEDS: ENOXAPARIN SODIUM 40 MG/0.4 ML SYRG SC SCH (15:31)
[2016-07-21] MEDS: ZIPRASIDONE HCL 40 MG CAPSULE PO SCH (17:30)
[2016-07-21] MEDS: FLUTICASONE/SALMETEROL 14 PUFF DISK.W.DEV IH SCH (20:24)
[2016-07-21] MEDS: SIMVASTATIN 10 MG TABLET PO SCH (20:25)
[2016-07-21] MEDS: lamoTRIgine 100 MG TABLET PO SCH (20:25)
[2016-07-21] MEDS ORDERED: INSULIN GLARGINE,HUM.REC.ANLOG 100 UNITS/ML VIAL SC SCH (21:00)
[2016-07-22 05:40] LABS: Hematocrit 36.9 % (37.0-47.0); Hemoglobin 11.4 gm/dL (12.5-16.0); Mean Cell Volume 91.3 fl (78-100); Mean Corpuscular Hemoglobin 28.2 pg (27-31); Mean Corpuscular Hgb Conc 30.9 g/dl (32-36); Mean Platelet Volume 9.3 fl (6.0-9.5); Platelet Count 279 K/mm3 (150-450); Red Blood Count 4.04 M/mm3 (4.2-5.4); Red Cell Distribution Width 13.7 % (11.5-14.0); White Blood Count 13.4 K/mm3 (4.0-10.5)
[2016-07-22 05:42] LABS: Total Cells Counted 100
[2016-07-22 06:02] LABS: Anion Gap 9.7 mmol/L (6.8-13.8); BUN/Creatinine Ratio 31.5 (9.0-21.6); Calcium * 8.9 mg/dL (7.9-10.9); Carbon Dioxide 32.4 mmol/L (24-32.6); Estimated Creat Clear 32.4; Potassium 4.1 mmol/L (3.4-4.6)
[2016-07-22 06:09] LABS: Immature Granulocyte 5 (0-1); Lymphocyte 18 % (20-51); Neutrophil 77 % (42-75); Neutrophil # 10.3 K/mm3 (1.3-6.0); Platelet Estimate Normal (NORMAL); RBC Morphology Normal (NORMAL)
[2016-07-22] MEDS: INSULIN REGULAR, HUMAN 100 UNITS/ML VIAL SC SCH ×2 (06:44→12:13)
[2016-07-22] MEDS: PANTOPRAZOLE SODIUM 40 MG TABLET.EC PO SCH (06:46)
[2016-07-22] MEDS: LEVOTHYROXINE SODIUM 75 MCG TABLET PO SCH (06:47)
[2016-07-22 07:50] VITALS: BP 135/70
[2016-07-22] MEDS: HYDROcodone/CHLORPHEN P-STIREX 5 ML UDC PO PRN (08:39)
[2016-07-22] MEDS: FLUTICASONE/SALMETEROL 14 PUFF DISK.W.DEV IH SCH (08:40)
[2016-07-22] MEDS: NIFEdipine 30 MG TAB.SR.24H PO SCH (08:41)
[2016-07-22] MEDS: METOPROLOL SUCCINATE 100 MG TABLET.SA PO SCH (08:41)
[2016-07-22] MEDS: PRAMIPEXOLE DI-HCL 0.5 MG TABLET PO SCH (08:41)
[2016-07-22] MEDS: TOLTERODINE TARTRATE 4 MG CAPSULE PO SCH (08:41)
[2016-07-22] MEDS: BETA-CAROTENE(A) W-C , E/MIN 1 TAB TABLET PO SCH (08:41)
[2016-07-22] MEDS: LOSARTAN POTASSIUM 50 MG TABLET PO SCH (08:41)
[2016-07-22] MEDS: amLODIPine BESYLATE 10 MG TABLET PO SCH (08:41)
[2016-07-22] MEDS: MOMETASONE FUROATE 120 SPRAY INHALER NS SCH (08:42)
[2016-07-22] MEDS: CYANOCOBALAMIN 1,000 MCG TABLET PO SCH (08:42)
[2016-07-22] MEDS: LORATADINE 10 MG TABLET PO SCH (08:42)
[2016-07-22] MEDS: CHOLECALCIFEROL 1,000 UNIT CAPSULE PO SCH (08:42)
[2016-07-22] MEDS: FUROSEMIDE 40 MG TABLET PO SCH (08:42)
[2016-07-22] MEDS: BENZONATATE 100 MG CAPSULE PO SCH ×2 (08:42→12:12)
[2016-07-22] MEDS: GABAPENTIN 600 MG TABLET PO SCH ×2 (08:43→12:12)
[2016-07-22] MEDS: INSULIN GLARGINE,HUM.REC.ANLOG 100 UNITS/ML VIAL SC SCH (08:47)
--- NOTE | 2016-07-22 08:56 | DS ---
(1) Leukocytosis Diagnosis(s): down to 13. due to acute bronchitis/IV steroids. Problem: Acute Qualifiers: Leukocytosis type: unspecified Qualified Code(s): D72.829 - Elevated white blood cell count, unspecified (2) Acute exacerbation of chronic obstructive pulmonary disease (COPD) Diagnosis(s): improved. will continue with her inahlers/nebs/PO levaquin. Problem: Acute (3) Lactic acid acidosis Diagnosis(s): due to Metformin and RTC B -agonist. Problem: Resolved (4) COPD (chronic obstructive pulmonary disease) Problem: Acute Qualifiers: COPD type: chronic bronchitis Chronic bronchitis type: unspecified Qualified Code(s): J42 - Unspecified chronic bronchitis (5) Diabetes mellitus type 2 in obese Diagnosis(s): will start her glipizide 5 mg PO qd a.m. Problem: Chronic (6) Hypertension Problem: Chronic Qualifiers: Hypertension type: essential hypertension Qualified Code(s): I10 - Essential (primary) hypertension (7) Bipolar 1 disorder Problem: Chronic (8) LUDY (obstructive sleep apnea) Problem: Chronic (9) Hyperlipidemia Problem: Chronic Qualifiers: Hyperlipidemia type: mixed hyperlipidemia Qualified Code(s): E78.2 - Mixed hyperlipidemia (10) Restless leg syndrome Problem: Chronic Description of Stay: Trang Serrato, is a 65-year-old white female, with previous medical history of COPD, bipolar disorder, diabetes mellitus type 2, hypertension, hypothyroidism, who was admitted on 07/18/2016 for cough, fever shortness of breath and wheezing. One week prior to admission she came to the office with the same complaints and we started her on oral prednisone and azithromycin. She was also doing her nebulizers and inhalers but did not find any relief with these interventions . She came back to the office and with the same complaints. Having failed outpatient treatment, she was admitted for IV Solu-Medrol, IV antibiotics and breathing treatments. Patient did not have any improvement initially and so an ABG gas was done which showed that the patient was in acute respiratory alkalosis with anion gap metabolic acidosis. Serum ketones was negative. However lactic acid was elevated at 6.6. Her metformin was stopped and it improved to 3.3 . It started going up again. Her levalbuterol round-the- clock treatment which is a beta agonists was also stopped and her lactic acid went down again to normal. Her shortness of breath, wheezing and coughing has improved significantly. She has had 5 days of IV antibiotics and 4 days og IV solumedrol which made her blood sugars go up. She was covered with insulin. She is stable to be discharged on oral prednisone and oral antibiotics again. Procedures Performed: none Discharge Disposition: Home self care Disposition: Home self-care Condition: Good Discharge Activity: Activity as tolerated Discharge Diet: Consistent carbs Referrals: Marcia Dumont MD [Primary Care Provider] - Problem Oriented Discharge Instructions to Patient/Family: Chronic Obstructive Pulmonary Disease Exacerbation, [id number] Additional Patient Instructions (free text): Follow up with Dr. Dumont on 07-28-16 @ 3:00pm. Prescriptions (Any new or edited meds): Acetaminophen [Tylenol] 650 mg PO QID PRN #30 tablet PRN Reason: Mild Pain HYDROcodone/CHLORPHEN P-STIREX [Tussionex Pennkinetic Suspension] 5 ml PO Q12H PRN #120 udc PRN Reason: Cough Ipratropium [place] [Atrovent] 0.5 mg IH Q6H PRN #7 vial.neb PRN Reason: Wheezing Levofloxacin [Levaquin] 500 mg PO DAILY@1100 #7 tablet glipiZIDE [Glipizide] 5 mg PO DAILY #30 tablet predniSONE [Prednisone] 40 mg PO DAILY #30 tablet Complete Home Medications List: Complete Home Medication List: Antiox #8/Om3/Dha/Epa/Lut/Zeax [Preservision Areds 2 Softgel] 1 each PO DAILY Cyanocobalamin (Vitamin B-12) [Vitamin B-12] 1,000 mcg PO DAILY 08/27/12 Gabapentin [Neurontin] 600 mg PO TID 08/27/12 Lamotrigine [Lamictal] 400 mg PO DAILY 08/27/12 Levothyroxine Sodium [Synthroid] 75 mcg PO DAILY 08/27/12 Pramipexole Di-HCl [Pramipexole Dihydrochloride] 1 mg PO DAILY 08/27/12 Simvastatin [Zocor] 10 mg PO HS 08/27/12 Albuterol Sulfate [Ventolin HFA] 1 puff IH Q6H 07/18/16 Cholecalciferol (Vitamin D3) [Vitamin D3] 1,000 unit PO DAILY 07/18/16 Dexlansoprazole [Dexilant] 60 mg PO DAILY 07/18/16 Ferrous Sulfate [Iron] 325 mg PO BID 07/18/16 Fexofenadine HCl 180 mg PO DAILY 07/18/16 Fluticasone/Vilanterol [Breo Ellipta 100-25 Mcg INH] 1 inh INH DAILY 07/18/16 Furosemide [Lasix] 40 mg PO DAILY 07/18/16 Ibandronate Sodium [Boniva] 150 mg PO Q30D 07/18/16 Irbesartan [Avapro] 300 mg PO DAILY 07/18/16 LORazepam [Ativan] 0.5 mg PO BID PRN 07/18/16 Lisinopril [Zestril] 40 mg PO DAILY 07/18/16 Mometasone Furoate [Nasonex] 2 spray NS DAILY 07/18/16 NIFEdipine [Adalat cc] 60 mg PO DAILY 07/18/16 Potassium Chloride [Klor-Con M20] 20 meq PO DAILY 07/18/16 Tolterodine Tartrate [Detrol LA] 4 mg PO DAILY 07/18/16 Ziprasidone HCl 40 mg PO 1700 07/18/16 amLODIPine BESYLATE [Norvasc] 10 mg PO DAILY 07/18/16 Acetaminophen [Tylenol] 650 mg PO QID PRN #30 tablet 07/22/16 HYDROcodone/CHLORPHEN P-STIREX [Tussionex Pennkinetic Suspension] 5 ml PO Q12H PRN #120 udc 07/22/16 Ipratropium [place] [Atrovent] 0.5 mg IH Q6H PRN #7 vial.neb 07/22/16 Levofloxacin [Levaquin] 500 mg PO DAILY@1100 #7 tablet 07/22/16 glipiZIDE [Glipizide] 5 mg PO DAILY #30 tablet 07/22/16 predniSONE [Prednisone] 40 mg PO DAILY #30 tablet 07/22/16
[2016-07-22] MEDS ORDERED: predniSONE 20 MG TABLET PO SCH (09:00)
[2016-07-22] MEDS: LEVOFLOXACIN 500 MG TABLET PO SCH (12:12)
[2016-08-07] MEDS ORDERED: Ibandronate Sodium [Boniva] 150 MG PO SCH (06:00)
== END 2016-07-22 13:30 | disposition home or self-care (01) | DRG 191 ==
LOC: MS 11:23 → OBSVTOIN 16:26 → MS 16:26
PROVIDERS: ADMIT Internal Medicine; ATTEND Internal Medicine
PROC: 4A033R1 Measurement of Arterial Saturation, Peripheral, Percutaneous Approach (ICD-10-PCS; principal; 2016-07-19)
DX: J44.0 Chronic obstructive pulmonary disease with (acute) lower respiratory infection (principal); E87.2 Acidosis; J20.9 Acute bronchitis, unspecified; J44.1 Chronic obstructive pulmonary disease with (acute) exacerbation; I10 Essential (primary) hypertension; D72.829 Elevated white blood cell count, unspecified; E78.5 Hyperlipidemia, unspecified; E11.9 Type 2 diabetes mellitus without complications; Z87.891 Personal history of nicotine dependence
CPT/HCPCS: 36415; 36600; 71020; 80048; 80053; 80076; 81001; 82009; 82803; 83605; 85007; 85025; 87040; 87081; 94640; 94660; G0379

== ENCOUNTER 2016-07-29 18:39 | Emergency (ER) | payer MEDICARE, OTHER ==
[2016-07-29 19:14] VITALS: BP 147/87
[2016-07-29 21:18] LABS: Hematocrit 34.8 % (37.0-47.0); Hemoglobin 10.8 gm/dL (12.5-16.0); Mean Cell Volume 91.6 fl (78-100); Mean Corpuscular Hemoglobin 28.4 pg (27-31); Mean Platelet Volume 9.7 fl (6.0-9.5); Neutrophil # 10.4 K/mm3 (1.3-6.0); Neutrophil % 82.4 % (42-75.0); Platelet Count 268 K/mm3 (150-450); White Blood Count 12.7 K/mm3 (4.0-10.5)
[2016-07-29 21:26] LABS: Anion Gap 13.2 mmol/L (6.8-13.8); BUN/Creatinine Ratio 21.2 (9.0-21.6); Calcium * 9.3 mg/dL (7.9-10.9); Carbon Dioxide 28.4 mmol/L (24-32.6); Estimated Creat Clear 39.6; Potassium 4.6 mmol/L (3.4-4.6)
--- OUTSIDE RECORDS SUMMARY | 2016-07-29 21:37 | XMS REPORT | Continuity of Care Document ---
:1950 Author Organization [facility] [place] [address] Care Team Providers Name Role Phone Marcia Dumont Primary Care Provider [phone] Source Comments This disclosure is being made pursuant to the [employer] program and maynot contain all information available regarding this patient.[facility] Active Allergies and Adverse Reactions No Known Allergies Current Medications Be aware that medications may not be up to date as of this document. Alwaysverify current medications with the patient. Prescription Sig. Disp. Refills Start Date End Date Status gabapentin (NEURONTIN) Take 1,800 mg by Active 600 MG tablet mouth nightly. lamoTRIgine (LAMICTAL) Take 400 mg by Active 200 MG tablet mouth nightly. pramipexole (MIRAPEX) Take 2 mg by Active 1 MG tablet mouth nightly. levothyroxine Take 75 mcg by Active (SYNTHROID, mouth every LEVOTHROID) 75 MCG morning. tablet irbesartan (AVAPRO) Take 300 mg by Active 300 MG tablet mouth daily. Calcium Take 1 tablet by Active Carbonate-Vitamin D mouth daily. (CALCIUM + D PO) furosemide (LASIX) 20 Take 40 mg by Active MG tablet mouth daily. simvastatin (ZOCOR) 40 Take 40 mg by Active MG tablet mouth nightly. metFORMIN (GLUCOPHAGE) Take 500 mg by Active 500 MG tablet mouth 2 (two) times daily with meals. ibandronate (BONIVA) Take 150 mg by Active 150 MG tablet mouth every 30 (thirty) days. mometasone-formoterol Inhale 2 puffs Active (DULERA) 200-5 MCG/ACT into the lungs 2 AERO inhaler (two) times daily as needed. fexofenadine (ASIA) Take 180 mg by Active 180 MG tablet mouth daily as needed. potassium chloride SA Take 20 mEq by Active (K-DUR,KLOR-CON) 20 mouth daily. MEQ tablet LORazepam (ATIVAN) 0.5 Take 0.5 mg by Active MG tablet mouth every 6 (six) hours as needed for Anxiety. meloxicam (MOBIC) 15 Take 15 mg by Active MG tablet mouth daily. metoprolol tartrate Take 50 mg by Active (LOPRESSOR) 25 MG mouth 2 (two) tablet times daily. ziprasidone (GEODON) Take 40 mg by Active 40 MG capsule mouth every evening. sucralfate (CARAFATE) Take 1 tablet by 120 tablet 4 09/16/2015 Active 1 G tablet mouth 4 (four) times daily. NIFEdipine (PROCARDIA Take 60 mg by Active XL) 60 MG 24 hr tablet mouth every morning. albuterol (PROAIR Inhale 2 puffs Active HFA;PROVENTIL into the lungs HFA;VENTOLIN HFA) 108 every 4 (four) (90 Base) MCG/ACT hours as needed inhaler for Wheezing. conjugated estrogens Place vaginally Active (PREMARIN) vaginal daily. cream Multiple Take 1 capsule by Active Vitamins-Minerals mouth daily. (PRESERVISION AREDS) CAPS capsule baclofen (LIORESAL) 10 Take 10 mg by Active MG tablet mouth 2 (two) times daily. Cyanocobalamin Take 1,000 mcg by Active (VITAMIN B 12 PO) mouth daily. aspirin 325 MG EC Take 325 mg by Active tablet mouth daily. Active Problems Problem Noted Date Hiatal hernia [...] Type Specialty Providers Description Data Import 7 [facility] Gastroenterology James, Anju Encounter MD Lolly Surgery [...] Taken Blood Pressure 133/68 06/20/2016 9:32 AM SCI[employer]IFIC [employer]EARCH ASS[employer]IATE Pulse 83 06/20/2016 9:32 AM [employer]EARCH [employer]IATE Temperature 36.3 C (97.3 F) 06/20/2016 7:53 AM [employer]EARCH [employer]IATE Respiratory Rate 18 06/20/2016 9:32 AM [employer] RESEARCH [employer]IATE Height 1.562 m (5' 1.5") 06/20/2016 7:53 AM SCI[employer] RESEARCH [employer]IATE Weight 103.329 kg (227 lb 12.8 oz) 06/20/2016 7:53 AM SCIENTIFIC RESEARCH ASS[employer]IATE Body Mass Index 42.35 06/20/2016 7:53 AM [employer]EARCH ASS[employer]IATE Oxygen Saturation 97% 06/20/2016 9:32 AM SCIENTIFIC RESEARCH ASSOCIATE Plan of Care Health Maintenance Due Date [...] 8:30 esophageal with bx's, with esophageal AM [employer]EARCH [employer]IATE spasms, hiatal dilatation with 51 savary hernia, gastritis Results from Last 3 Months EKG VIEW RHYTHM STRIP (06/24/2016 10:39 AM)POCT glucose (06/20/2016 8:23 AM) Component Value Range Bedside Glucose 124(H) 70-100 mg/dL Surgical pathology exam (06/20/2016) Narrative CASE: [id number] - SURGICAL PATHOLOGY REPORT - - DIAGNOSIS: [...] - GROSS EXAMINATION: Gross examination performed at [facility], [address] [place] [id number] AN Part A: The specimen container is [...] - MICROSCOPIC EXAMINATION: Microscopic examination performed at [facility], [address] [place] [address]. Immunostain for H. pylori is performed in part B with satisfactory controls, and it is negative. A PAS/Alcian blue stain is performed in part C with satisfactory controls and is negative for goblet cells and fungi. - - - Final Diagnosis performed by Luz Elena Wetzel M.D. Pathologist Electronically signed 06/22/2016 1:48:15PM - -
--- OUTSIDE RECORDS SUMMARY | 2016-07-29 21:38 | XMS REPORT | Continuity of Care Document ---
:1950 Author Organization [facility] ([facility]) Address [address] [place] [address] Phone [phone] Care Team Providers Name Role Phone Marcia Dumont Primary Care Provider [phone] Source Comments This disclosure is being made pursuant to the Care Everywhere program, applicable federal and state laws, and may not contain all informaitonavailable regarding this patient.[facility] ([facility]) Active Allergies and Adverse Reactions Allergen [...] Recent Encounters Date Type Specialty Providers Description 07/27/2016 Office Visit Obg Urogynecology Konrad Law MD Chief Comp: Patient Reported Reason For Visit Social History Tobacco Use Types Packs/Day Years Used Date Former Smoker Cigarettes 2 25 Quit: 10/15/1992 Smokeless Tobacco: Never Used Tobacco Cessation:Counseling Given: Yes Comments: Alcohol Use Drinks/Week oz/Week Comments No 1 Glasses of wine 0.0 Last Filed Vital Signs Vital Sign Reading Time Taken Blood Pressure 138/78 04/27/2016 9:18 AM [employer] Pulse 79 04/27/2016 9:18 AM [employer] Temperature 37 C (98.6 F) 02/26/2016 12:00 PM [employer] Respiratory Rate 20 02/26/2016 12:45 PM [employer] Height 1.562 m (5' 1.5") 02/04/2016 1:19 PM CDT Weight 100.1 kg (220 lb 10.9 oz) 04/27/2016 9:18 AM [employer] Body Mass Index 41.03 04/27/2016 9:18 AM [employer] Oxygen Saturation 96% 02/26/2016 12:45 PM [employer] Plan of Care Date Type Specialty Providers Description 08/10/2016 Appointment Obg Urogynecology Konrad Law MD Chief Comp: Patient [address] [place] [address] Visit [phone] (Fax) Health Maintenance Due Date Last Done Comments HCV Screening 1950 Hepatitis B Vaccine (1 of 3 - Primary Series) 1950 Tdap Vaccine 08/15/1959 Td Vaccine 1966 Mammogram 1988 Colonoscopy 1998 Zoster Vaccine 2008 Osteoporosis Screening (DXA Bone Density) 2013 Pneumococcal Vaccine (1 of 2 - PCV13) 2013 Influenza Vaccine: Seasonal (Season Ended) 2016 Lipid Disorder Screening 03/03/2017 03/03/2012 Results from Last 3 Months Not on file
[2016-07-29 22:00] LABS: Urine Bilirubin Negative (NEGATIVE); Urine Blood Negative /ul (NEGATIVE); Urine Ketone Negative (NEGATIVE); Urine Nitrite Negative (NEGATIVE); Urine Protein Negative (NEGATIVE); Urine Specific Gravity 1.015 SP.GR. (1.005-1.010); Urine Urobilinogen Normal (NORMAL); Urine pH 6.5 pH (5.0-7.0)
[2016-07-29 22:09] LABS: Urine Appearance Clear; Urine Bacteria TRACE; Urine Color Yellow; Urine RBC None Seen /hpf (0-5); Urine WBC None Seen /hpf (0-5)
--- NOTE | 2016-07-29 22:17 | ERNOTE ---
Medical Problem HPI - Narrative Date of Service: 07/29/16 - General Chief Complaint: Diabetes Related Problem Time Seen by Provider: 07/29/16 21:29 Source: patient, family Exam Limitations: no limitations - Immun/Allergies/Home Medications Immunizations: IMMUNIZATION HX Immunizations Up to Date Yes History of Influenza Vaccine Yes Hx Pneumococcal Vaccination Yes Allergies/Adverse Reactions: Allergies No Known Allergies Allergy (Verified 07/18/16 12:57) Home Medications: HOME MEDICATIONS Antiox #8/Om3/Dha/Epa/Lut/Zeax [Preservision Areds 2 Softgel] 1 each PO DAILY [Last Taken Unknown] Cyanocobalamin (Vitamin B-12) [Vitamin B-12] 1,000 mcg PO DAILY 08/27/12 [Last Taken Unknown] Gabapentin [Neurontin] 600 mg PO TID 08/27/12 [Last Taken Unknown] Lamotrigine [Lamictal] 400 mg PO DAILY 08/27/12 [Last Taken Unknown] Levothyroxine Sodium [Synthroid] 75 mcg PO DAILY 08/27/12 [Last Taken Unknown] Pramipexole Di-HCl [Pramipexole Dihydrochloride] 1 mg PO DAILY 08/27/12 [Last Taken Unknown] Simvastatin [Zocor] 10 mg PO HS 08/27/12 [Last Taken Unknown] Albuterol Sulfate [Ventolin HFA] 1 puff IH Q6H 07/18/16 [Last Taken Unknown] Cholecalciferol (Vitamin D3) [Vitamin D3] 1,000 unit PO DAILY 07/18/16 [Last Taken Unknown] Dexlansoprazole [Dexilant] 60 mg PO DAILY 07/18/16 [Last Taken Unknown] Ferrous Sulfate [Iron] 325 mg PO BID 07/18/16 [Last Taken Unknown] Fexofenadine HCl 180 mg PO DAILY 07/18/16 [Last Taken Unknown] Fluticasone/Vilanterol [Breo Ellipta 100-25 Mcg INH] 1 inh INH DAILY 07/18/16 [ Last Taken Unknown] Furosemide [Lasix] 40 mg PO DAILY 07/18/16 [Last Taken Unknown] Ibandronate Sodium [Boniva] 150 mg PO Q30D 07/18/16 [Last Taken Unknown] Irbesartan [Avapro] 300 mg PO DAILY 07/18/16 [Last Taken Unknown] LORazepam [Ativan] 0.5 mg PO BID PRN 07/18/16 [Last Taken Unknown] Lisinopril [Zestril] 40 mg PO DAILY 07/18/16 [Last Taken Unknown] Mometasone Furoate [Nasonex] 2 spray NS DAILY 07/18/16 [Last Taken Unknown] NIFEdipine [Adalat cc] 60 mg PO DAILY 07/18/16 [Last Taken Unknown] Potassium Chloride [Klor-Con M20] 20 meq PO DAILY 07/18/16 [Last Taken Unknown] Tolterodine Tartrate [Detrol LA] 4 mg PO DAILY 07/18/16 [Last Taken Unknown] Ziprasidone HCl 40 mg PO 1700 07/18/16 [Last Taken Unknown] amLODIPine BESYLATE [Norvasc] 10 mg PO DAILY 07/18/16 [Last Taken Unknown] Acetaminophen [Tylenol] 650 mg PO QID PRN #30 tablet 07/22/16 [Last Taken Unknown] HYDROcodone/CHLORPHEN P-STIREX [Tussionex Pennkinetic Suspension] 5 ml PO Q12H PRN #120 udc 07/22/16 [Last Taken Unknown] Ipratropium [place] [Atrovent] 0.5 mg IH Q6H PRN #7 vial.neb 07/22/16 [Last Taken Unknown] Levofloxacin [Levaquin] 500 mg PO DAILY@1100 #7 tablet 07/22/16 [Last Taken Unknown] glipiZIDE [Glipizide] 5 mg PO DAILY #30 tablet 07/22/16 [Last Taken Unknown] predniSONE [Prednisone] 40 mg PO DAILY #30 tablet 07/22/16 [Last Taken Unknown] - History of Present History Narrative: 65 year old that is on her second course of steriod for treatment of bronchitis. She was concern about her glucose running in the 400s since she has been taking the steriods- which is a six day course as per the patient. Denies any chest pain, increased SOB, fevers, chills or N/V/D or fatigue. Timing: constant Severity: mild Modifying Factors - (Improves): Present: other - none Modifying Factors - (Worsens): Present: other - none Review of Systems - Review of Systems Constitutional: Present: no symptoms reported EYE: Present: no symptoms reported ENT: Present: no symptoms reported Respiratory: Present: no symptoms reported Cardiology: Present: no symptoms reported Gastrointestinal/Abdominal: Present: no symptoms reported Genitourinary: Present: no symptoms reported Musculoskeletal: Present: no symptoms reported Skin: Present: no symptoms reported Neurological: Present: no symptoms reported Endocrine: Present: no symptoms reported Hematologic/Lymphatic: Present: no symptoms reported Psych: Present: no symptoms reported - Patient's Past Medical History Patient History - Medical: ADHD, Anxiety, Diabetes Type 2, Depression, Hypothyroidism Patient History - Cardiac/Respiratory: Coronary Heart Disease, CHF, COPD, Hypertension Patient History - Cancer: No Hx of Cancer Patient History - Surgical Procedures: Cataracts, Cholecystectomy, Colonoscopy, , D & C, EGD, Hysterectomy, Tubal Ligation Patient History - Other: None - Family History Mother Family History - Medical: Diabetes Type 2, Glaucoma Family History - Cardiac/Respiratory: Coronary Heart Disease, Hypertension Family History - Cancer: No pertinent family hx Father Family History - Medical: No pertinent hx Family History - Cardiac/Respiratory: Coronary Heart Disease Family History - Cancer: No pertinent family hx - Social History Living Situations: spouse Abuse History: No History of abuse Psych History: Hx of Anxiety, Hx of Depression, Hx of Bipolar Disorder Smoking Status: Never smoker Alcohol Use: none Drug Use: none - Immunizations Immunizations Up to Date: Yes Hx Pneumococcal Vaccination: Yes History of Influenza Vaccine: Yes Physical Exam - Physical Exam Narrative: Morbidly obese, pleasant and cooperative. General Appearance: Present: no apparent distress Eye Exam: Normal inspection: bilateral, PERRL: bilateral Ears, Nose, Throat: Present: normal ENT inspection Neck: Present: normal inspection Respiratory: Present: normal breath sounds Cardiovascular/Chest: Present: regular rate, rhythm Gastrointestinal/Abdominal: Present: nontender Back Exam: Present: normal inspection Extremity Exam: Present: normal inspection Neurological Exam: Present: alert, oriented, normal mood/affect, distributor cleaner II-XII nml as tested Skin Exam: Present: normal color ED Progress - Results and Orders Patient's Lab Results:: I have reviewed the patient's lab results. - Vital Signs Vital Signs: Vital Signs 07/29/16 07/29/16 18:40 19:08 Temperature 36.4 C L 36.9 C Pulse Rate 88 Respiratory 16 Rate Blood Pressure 150/80 147/87 O2 Sat by Pulse 98 Oximetry - Progress/Reassessment Chief Complaint: Diabetes Related Problem Progress:: Unchanged Progress Note-Subjective: 07/29/16 22:20 It was explained to the patient that it is acceptable for her to have glucose levels that are running higher than normal while she is taking the tapered dose of steroids. Trang was instructed to return to the ED if the glucose was running above 500. She was also advised to call her doctor on Monday and determine if she should continue the oral steroids or discontinue them. Departure - Departure Clinical Impression: Steroid-induced hyperglycemia Disposition: Home self-care Condition: Fair Instructions: Hyperglycemia, [id number] Print Language: Yakut
== END 2016-07-29 22:29 | disposition home or self-care (01) ==
LOC: ER 18:39
DX: R73.9 Hyperglycemia, unspecified (principal); Z79.52 Long term (current) use of systemic steroids; I25.10 Atherosclerotic heart disease of native coronary artery without angina pectoris; J44.9 Chronic obstructive pulmonary disease, unspecified; I50.9 Heart failure, unspecified

== ENCOUNTER 2016-08-14 10:10 | Emergency (ER) | payer MEDICARE, OTHER ==
[2016-08-14 10:23] VITALS: BP 132/64
--- OUTSIDE RECORDS SUMMARY | 2016-08-14 10:55 | XMS REPORT | Continuity of Care Document ---
:1950 Author Organization [facility] [place] [address] Care Team Providers Name Role Phone Marcia Dumont Primary Care Provider [phone] Source Comments This disclosure is being made pursuant to the [employer] program and maynot contain all information available regarding this patient.[facility] Active Allergies and Adverse Reactions No Known [...] Type Specialty Providers Description Data Import 7 [facility] Gastroenterology James, Anju Encounter MD Lolly Surgery [...] Taken Blood Pressure 133/68 06/20/2016 9:32 AM WHIPPED TOPPING MIXER Pulse 83 06/20/2016 9:32 AM [employer] Temperature 36.3 C (97.3 F) 06/20/2016 7:53 AM WH[employer]PED [employer]PING [employer] Respiratory Rate 18 06/20/2016 9:32 AM WH[employer]PED [employer]PING M[employer] Height 1.562 m (5' 1.5") 06/20/2016 7:53 AM WH[employer]PING M[employer] Weight 103.329 kg (227 lb 12.8 oz) 06/20/2016 7:53 AM WH[employer]PING [employer] Body Mass Index 42.35 06/20/2016 7:53 AM WH[employer]PING [employer] Oxygen Saturation 97% 06/20/2016 9:32 AM WH[employer]PING [employer] Plan of Care Health Maintenance Due Date [...] 8:30 esophageal with bx's, with esophageal AM WH[employer]PED [employer]PING MIX[employer] spasms, hiatal dilatation with 51 savary hernia, gastritis Results from Last 3 Months EKG VIEW RHYTHM STRIP (06/24/2016 10:39 AM)POCT glucose (06/20/2016 8:23 AM) Component Value Range Bedside Glucose 124(H) 70-100 mg/dL Surgical pathology exam (06/20/2016) Narrative CASE: [id number] - SURGICAL PATHOLOGY REPORT - - DIAGNOSIS: [...] - GROSS EXAMINATION: Gross examination performed at [facility], [address] [place] [id number] AN Part A: The specimen container is [...] - MICROSCOPIC EXAMINATION: Microscopic examination performed at [facility], [address] [place] [address]. Immunostain for H. pylori is performed in part B with satisfactory controls, and it is negative. A PAS/Alcian blue stain is performed in part C with satisfactory controls and is negative for goblet cells and fungi. - - - Final Diagnosis performed by Luz Elena Wetzel M.D. Pathologist Electronically signed 06/22/2016 1:48:15PM - -
--- OUTSIDE RECORDS SUMMARY | 2016-08-14 10:55 | XMS REPORT | Continuity of Care Document ---
:1950 Author Organization [facility] ([facility]) Address [address] [place] [address] Phone [phone] Care Team Providers Name Role Phone Marcia Dumont Primary Care Provider [phone] Source Comments This disclosure is being made pursuant to the Care Everywhere program, applicable federal and state laws, and may not contain all informaitonavailable regarding this patient.[facility] ([facility]) Active Allergies and Adverse Reactions Allergen Noted Date Severity Reactions Comments Adhesive Tape-Silicones 07/09/2015 Rash "PAPER TAPE" Animal Dander 07/09/2015 OTHER Mold 07/09/2015 Asthma Trees 07/09/2015 Asthma Current Medications Prescription Sig. Disp. Refills Start End Date Status Date potassium chloride Take 20 mEq by Active (KLOR-CON) 20 mEq mouth daily. packet levothyroxine Take 75 mcg by Active (LEVOTHROID) 75 mcg mouth every tablet morning before breakfast. pramipexole 1 mg Take 1 mg by Active tablet mouth 3 times daily. lamoTRIgine 200 mg Take 400 mg by Active tablet mouth daily. amLODIPine (NORVASC) Take 10 mg by Active 10 mg tablet mouth daily. furosemide 20 mg Take 0.5 Tabs by 15 Tab 5 Active tablet mouth daily. 2 Indications: EDEMA, HYPERTENSION irbesartan 300 mg Active tablet 6 LORazepam 0.5 mg Active tablet 6 fexofenadine 180 mg Take 180 mg by Active tablet mouth daily. ibandronate 150 mg Take 150 mg by Active tablet mouth every month. lisinopril 40 mg Take 40 mg by Active tablet mouth daily. acetaminophen 325 mg Take 325 mg by Active tablet mouth every 4 hours as needed. dexlansoprazole Take 60 mg by Active (DEXILANT) [address] mouth daily. capsule gabapentin 600 mg Take 600 mg by Active tablet mouth 3 times daily. albuterol 90 Use 2 Puffs by Active mcg/Actuation inhalation 4 inhaler times daily. cyanocobalamin Take 1,000 mcg by Active (VITAMIN B-12) 1,000 mouth daily. mcg/15 mL oral solution multivitamin with Take 1 capsule by Active minerals mouth daily. (PRESERVISION AREDS) 86037 unit-226 mg-200 unit per capsule SUPPLY CONTOUR NEXT test DAILY 1 Active test strip 7 chlorthalidone 25 mg Take 1 tablet by 1 Active tablet mouth daily. 7 BREO ELLIPTA 200-25 Use 1 Puff by 3 Active mcg/dose inhaler inhalation daily. 7 glipiZIDE 5 mg Take 5 mg by 0 Active tablet mouth daily. 7 ipratropium 0.5 4 times daily. 1 Active mg/2.5 mL nebulizer 7 solution promethazine-codeine TAKE 5ml BY MOUTH 0 Active 6.25-10 mg/5 mL EVERY 4 TO 6 7 syrup HOURS NEEDED. not TO exceed 30 ML IN 24 HOURS. spironolactone 25 mg Take 1 tablet by 1 Active tablet mouth daily. 7 ferrous sulfate 325 Take 325 mg by Active mg (65 mg iron) mouth 2 times tablet daily. mometasone 50 Use 2 Sprays into Active mcg/Actuation nasal both nostrils spray daily. gabapentin 50 mg/mL Take 1,200 mg by 08/11/19 Discontinued solution mouth 3 times 17 daily. simvastatin (ZOCOR) Take 10 mg by 08/11/19 Discontinued 10 mg tablet mouth every 17 evening. estrogens, Daily x2 weeks, 30 g 11 08/11/19 Discontinued conjugated M/W/F x2 weeks, 5 17 (PREMARIN) 0.625 then twice weekly mg/gram vaginal after that time cream metoPROLol succinate Take 50 mg by 08/11/19 Discontinued 50 mg XL tablet mouth 2 times 17 daily. CALCIUM 08/11/19 Discontinued CARBONATE/VITAMIN D2 17 (CALCIUM + VITAMIN D PO) meloxicam 15 mg Take 15 mg by 08/11/19 Discontinued tablet mouth daily. 17 mometasone-formotero Use 2 Puffs by 08/11/19 Discontinued l (DULERA 200-5) inhalation 2 17 inhaler times daily. ziprasidone 40 mg Take 40 mg by 08/11/19 Discontinued capsule mouth 2 times 17 daily. aspirin 325 mg Take 325 mg by 08/11/19 Discontinued tablet mouth daily. 17 oxyCODONE-acetaminop Take 1-2 tablets 45 tablet 0 08/11/19 Discontinued hen 5-325 mg per by mouth every 6 6 17 tablet hours as needed for Pain. Do Not exceed 4000 mg of acetaminophen per 24 hours. sucralfate PO 08/11/19 Discontinued 17 Active Problems Problem Noted Date Urge incontinence 02/11/2016 OAB (overactive bladder) 10/23/2015 Diplopia 03/02/2012 Unspecified cerebral artery occlusion with cerebral infarction 03/02/2012 Limb weakness 03/02/2012 CAD (coronary artery disease) 03/02/2012 Prediabetes 03/02/2012 Most Recent Encounters Date Type Specialty Providers Description 08/10/2016 Office Visit [facility] Konrad Law MD Dx: Urge incontinence (Primary Dx) 07/27/2016 Office Visit [facility] Konrad Law MD Chief Comp: Patient Reported Reason For Visit Social History Tobacco Use Types Packs/Day Years Used Date Former Smoker Cigarettes 2 25 Quit: 10/15/1992 Smokeless Tobacco: Never Used Tobacco Cessation:Counseling Given: Yes Comments: Alcohol Use Drinks/Week oz/Week Comments No 1 Glasses of wine 0.0 Last Filed Vital Signs Vital Sign Reading Time Taken Blood Pressure 140/77 08/10/2016 1:28 PM CDT Pulse 113 08/10/2016 1:28 PM CDT Temperature 37 C (98.6 F) 02/26/2016 12:00 PM [employer] Respiratory Rate 20 02/26/2016 12:45 PM [employer] Height 1.562 m (5' 1.5") 02/04/2016 1:19 PM CDT Weight 102 kg (224 lb 13.9 oz) 08/10/2016 1:28 PM CDT Body Mass Index 41.81 08/10/2016 1:28 PM CDT Oxygen Saturation 96% 02/26/2016 12:45 PM [employer] Plan of Care Health Maintenance Due Date [...]
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
== END 2016-08-14 11:28 | disposition home or self-care (01) ==
LOC: ER 10:10
PROC: 2W3LX1Z Immobilization of Right Lower Extremity using Splint (ICD-10-PCS; principal; 2016-08-14)
DX: S83.91XA Sprain of unspecified site of right knee, initial encounter (principal); W06.XXXA Fall from bed, initial encounter; Y92.003 Bedroom of unspecified non-institutional (private) residence as the place of occurrence of the external cause; F90.9 Attention-deficit hyperactivity disorder, unspecified type; F41.8 Other specified anxiety disorders; E11.9 Type 2 diabetes mellitus without complications; E03.9 Hypothyroidism, unspecified; I25.2 Old myocardial infarction; I10 Essential (primary) hypertension; J44.9 Chronic obstructive pulmonary disease, unspecified; I50.9 Heart failure, unspecified

== ENCOUNTER 2019-05-29 06:46 | Observation (INO) ==
[2019-05-29] MEDS ORDERED: NORMAL SALINE 1,000 ML IV ONE (06:52)
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
[2019-05-29 07:16] LABS: Hematocrit 33.9 % (37.0-47.0); Mean Cell Volume 87.4 fl (78-100); Mean Corpuscular Hemoglobin 25.8 pg (27-31); Mean Corpuscular Hgb Conc 29.5 g/dl (32-36); Neutrophil # 7.2 K/mm3 (1.3-6.0); Neutrophil % 83.1 % (42-75.0); Platelet Count 242 K/mm3 (150-450); Red Blood Count 3.88 M/mm3 (4.2-5.4); Red Cell Distribution Width 13.8 % (11.5-14.0); White Blood Count 8.7 K/mm3 (4.0-10.5)
[2019-05-29] MEDS ORDERED: ACETAMINOPHEN 325 MG TABLET PO ONE (07:17)
[2019-05-29 07:32] LABS: Anion Gap 10.2 mmol/L (6.8-13.8); BUN/Creatinine Ratio 16.3 (9.0-21.6); Bilirubin, Total 0.2 mg/dL (0.0-1.1); Ca. Corrected For Albumin 9.4 mg/dL (8.4-10.2); Calcium * 8.9 mg/dL (7.9-10.9); Carbon Dioxide 28.6 mmol/L (24-32.6); Potassium 3.8 mmol/L (3.4-4.6); Total Protein 6.7 gm/dL (6.2-8.2)
[2019-05-29] MEDS ORDERED: METHYLPREDNISOLONE SOD SUCC/PF 40 MG/ML VIAL IV ONE (07:47)
[2019-05-29] MEDS ORDERED: cefTRIAXone SODIUM 1,000 MG/100 ML BAG IV ONE (07:48)
[2019-05-29] MEDS ORDERED: ALBUTEROL SULFATE/IPRATROPIUM 3 ML NEBU IH PRN (08:55)
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
[2019-05-29] MEDS ORDERED: ALBUTEROL SULFATE 2.5 MG/0.5 ML VIAL.NEB IH PRN (08:59)
[2019-05-29] MEDS: PANTOPRAZOLE SODIUM 40 MG in NORMAL SALINE 100 ML IV SCH (12:04)
[2019-05-29] MEDS: INSULIN LISPRO 100 UNITS/ML VIAL SC SCH ×3 (12:11→21:53)
[2019-05-29] MEDS ORDERED: HYDROcodone/ACETAMINOPHEN 1 EACH TABLET PO PRN (14:09)
[2019-05-29] MEDS ORDERED: LORazepam 0.5 MG TABLET PO PRN (14:09)
[2019-05-29] MEDS ORDERED: ACETAMINOPHEN 500 MG TABLET PO PRN (14:09)
[2019-05-29] MEDS ORDERED: traMADol HCL 50 MG TABLET PO PRN (14:09)
[2019-05-29] MEDS: METHYLPREDNISOLONE SOD SUCC/PF 40 MG/ML VIAL IV SCH ×2 (15:29→21:51)
[2019-05-29] MEDS ORDERED: SIMVASTATIN 40 MG TABLET PO SCH (17:00)
[2019-05-29] MEDS: metFORMIN HCL 500 MG TABLET PO SCH (17:44)
[2019-05-29] MEDS ORDERED: ZIPRASIDONE HCL 40 MG CAPSULE PO SCH (21:00)
[2019-05-29] MEDS ORDERED: INSULIN GLARGINE,HUM.REC.ANLOG 100 UNITS/ML VIAL SC SCH (21:00)
[2019-05-29] MEDS ORDERED: lamoTRIgine 100 MG TABLET PO SCH (21:00)
[2019-05-29] MEDS ORDERED: GABAPENTIN 600 MG TABLET PO SCH (21:00)
[2019-05-29] MEDS ORDERED: PRAMIPEXOLE DI-HCL 0.5 MG TABLET PO SCH (21:00)
[2019-05-29] MEDS: METOPROLOL TARTRATE 50 MG TABLET PO SCH (21:57)
[2019-05-29] MEDS: guaiFENesin/DEXTROMETHORPHAN SYRUP PO PRN (22:03)
[2019-05-29 22:19] LABS: Urine Appearance Clear (CLEAR); Urine Bacteria TRACE; Urine Bilirubin Negative (NEGATIVE); Urine Blood Negative /ul (NEGATIVE); Urine Color Yellow; Urine Ketone 15 mg/dL (NEGATIVE); Urine Nitrite Negative (NEGATIVE); Urine Protein 15 mg/dL (NEGATIVE); Urine RBC None Seen /hpf (0-5); Urine Specific Gravity >=1.030 SP.GR. (1.005-1.010); Urine Urobilinogen Normal (NORMAL); Urine WBC TRACE /hpf (0-5)
[2019-05-30] MEDS: METHYLPREDNISOLONE SOD SUCC/PF 40 MG/ML VIAL IV SCH ×3 (02:54→17:14)
[2019-05-30] MEDS: guaiFENesin/DEXTROMETHORPHAN SYRUP PO PRN (05:25)
[2019-05-30] MEDS ORDERED: LEVOTHYROXINE SODIUM 112 MCG TABLET PO SCH (07:00)
[2019-05-30] MEDS: INSULIN LISPRO 100 UNITS/ML VIAL SC SCH ×2 (07:58→12:17)
[2019-05-30] MEDS: metFORMIN HCL 500 MG TABLET PO SCH (08:00)
[2019-05-30] MEDS: METOPROLOL TARTRATE 50 MG TABLET PO SCH (08:01)
[2019-05-30] MEDS ORDERED: ESTROGENS, CONJUGATED 0.625 MG TABLET PO SCH (09:00)
[2019-05-30] MEDS ORDERED: BETA-CAROTENE(A) W-C , E/MIN 1 TAB TABLET PO SCH (09:00)
[2019-05-30] MEDS ORDERED: FUROSEMIDE 80 MG TABLET PO SCH (09:00)
[2019-05-30] MEDS ORDERED: POTASSIUM CHLORIDE 20 MEQ TABLET.SA PO SCH (09:00)
[2019-05-30] MEDS ORDERED: LOSARTAN POTASSIUM 50 MG TABLET PO SCH (09:00)
[2019-05-30] MEDS ORDERED: CHOLECALCIFEROL 1,000 UNIT CAPSULE PO SCH (09:00)
[2019-05-30] MEDS ORDERED: SPIRONOLACTONE 25 MG TABLET PO SCH (09:00)
[2019-05-30] MEDS ORDERED: ESCITALOPRAM OXALATE 10 MG TAB PO SCH (09:00)
[2019-05-30] MEDS ORDERED: CHLORTHALIDONE 25 MG TABLET PO SCH (09:00)
[2019-05-30] MEDS ORDERED: TOLTERODINE TARTRATE 2 MG CAPSULE PO SCH (09:00)
[2019-05-30] MEDS ORDERED: ASPIRIN 81 MG TAB.CHEW PO SCH (09:00)
[2019-05-30] MEDS ORDERED: DEXLANSOPRAZOLE 60 MG PO SCH (09:00)
[2019-05-30] MEDS ORDERED: GABAPENTIN 600 MG TABLET PO SCH (09:00)
[2019-05-30] MEDS ORDERED: NIFEdipine 30 MG TAB.SR.24H PO SCH (09:00)
--- NOTE | 2019-05-30 12:09 | DS ---
(1) Acute bronchitis with asthma with acute exacerbation Problem: Acute (2) Hypothyroidism Problem: Chronic Qualifiers: (3) Diabetes mellitus type 2 in obese Problem: Chronic (4) Hypertension Problem: Chronic (5) LUDY (obstructive sleep apnea) Problem: Chronic (6) Hyperlipidemia Problem: Chronic Qualifiers: Date of Discharge:: 05/30/19 Hospital Course: Trang Serrato is a 68 year old white female with PMH of Asthma, DM type 2, Bipolar Disorder, major depression disorder, Osteoarthritis, PTSD, Hypertension who was admitted for fever and coughing. 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 She used her inhalers and nebulizers which did not give her complete relief. Last night , she stood up to go to the bathroom and she lost her balance and fell down. She could not be lifted up from the floor and so they called EMS. When they arrived they noted that she had fever and was coughing and so they advised her to go to the ED. In the ED, she was tachypneic, tachycardic and was saturaring in the 90%. Her CXR did not show acute cardiopulmonary findings except for mild cardiomegaly.. Her inluenza A & B were negative. Her WBC was normal but she did have a left shift. She was admitted for Acute COPD exacerbation spefically [place] exacerbation likely due to beginning Acute bronchitis/or URI. She was started on IV solumedrol, IV antibiotics and breathing treatments. She walked in the hallways and her O2 saturation was 96 %. She is stable to be discharged today. Procedures Performed: none Results and Findings: Pending Mircobiology Results 05/29/19 07:25 Blood Blood Culture - Preliminary NO GROWTH 24 HOURS 05/29/19 07:00 Blood Blood Culture - Preliminary NO GROWTH 24 HOURS Lab Pending Results 05/29/19 06:55: Influenza Type A Ag Negative, Influenza Type B Ag Negative 05/29/19 07:00: WBC 8.7, RBC 3.88 L, Hgb 10.0 L, Hct 33.9 L, MCV 87.4, MCH 25.8 L, MCHC 29.5 L, RDW 13.8, Plt Count 242, MPV 9.0, Immature Gran % (Auto) 0.50 H, Immature Gran # (Auto) 0.04 H, Neutrophils % 83.1 H, Lymphocytes % 8.7 L, Monocy keri % 5.5, Eosinophils % 1.7, Basophils % 0.5, Nucleated RBC % 0.0, Neutrophils # 7.2 H, Lymphocytes # 0.76 L, Monocytes # 0.5, Eosinophils # 0.2, Absolute Basophils 0.0 05/29/19 07:00: Sodium 137, Plasma Sodium 139, Potassium 3.8, Chloride 102, Carbon Dioxide 28.6, Anion Gap 10.2, BUN 16, Creatinine 0.98, Est GFR (Non-Af Amer) 60, BUN/Creatinine Ratio 16.3, Random Glucose 252 H, Calcium 8.9, Calcium Adj for Albumin 9.4, Total Bilirubin 0.2, AST 24, ALT 22, Alkaline Phosphatase 119, B-Natriuretic Peptide 379 H, Total Protein 6.7, Albumin 3.0 L 05/29/19 07:00: Lactic Acid, Venous 1.2 05/29/19 07:00: Serum Ketones Negative 05/29/19 21:00: Urine Color Yellow, Urine Appearance Clear, Urine pH 6.0, Ur Specific [place] >=1.030, Urine Protein 15 H, Urine Glucose (UA) >=1000 H, Urine Ketones 15, Urine Blood Negative, Urine Nitrate Negative, Urine Bilirubin Negative, Prot Sulfosalicylic Acd Negative, Urine Urobilinogen Normal, Ur Leukocyte Esterase Negative, Urine RBC None seen, Urine WBC Trace H, Ur Epithelial Cells 0-5, Urine Bacteria Trace, Urine Culture Comments No culture indicated Discharge Location: Home Disposition: Home self-care Condition: Good Discharge Activity: Activity as tolerated Discharge Diet: Consistent carbs Referrals: Marcia Dumont MD [Primary Care Provider] - Additional Patient Instructions (free text): Follow up with PCP in 1 week. Prescriptions (Any new or edited meds): Albuterol Sulfate/Ipratropium [Duoneb 2.5-0.5MG/3ML Soln] 3 ml INHALATION BID PRN #7 nebu PRN Reason: Shortness Of Breath/Wheezing Transmission Status: Pending to [facility] [place], [place] Escitalopram Oxalate [Lexapro] 20 mg PO DAILY #60 tab Transmission Status: Pending to [facility], [place] guaiFENesin [Mucinex] 600 mg PO BID #14 tablet.sa Transmission Status: Pending to [place], [place] predniSONE [Prednisone] 2 tab PO DAILY 5 Days #10 tab Transmission Status: Pending to [place], [place] Albuterol Sulfate [Ventolin HFA] 1 puff INHALATION Q4H PRN #1 inhaler PRN Reason: Wheezing Transmission Status: Pending to [place], [place] Azithromycin [Zithromax] 250 mg PO DAILY 5 Days #6 tab Transmission Status: Pending to [place], [place] Complete Home Medications List: Complete Home Medication List: Antiox #8/Om3/Dha/Epa/Lut/Zeax [Preservision Areds 2 Softgel] 1 ea PO DAILY 08/27/12 Fexofenadine HCl 180 mg PO DAILY PRN 07/18/16 Ibandronate Sodium [Boniva] 150 mg PO Q30D 07/18/16 Irbesartan [Avapro] 300 mg PO DAILY 07/18/16 Mometasone Furoate [Nasonex] 2 spray NS DAILY PRN 07/18/16 Blood-Glucose Meter [Blood Glucose Monitoring] 1 ea MC DAILY 08/22/17 Cholecalciferol (Vitamin D3) [Vitamin D3] 2,000 unit PO DAILY 08/22/17 Cyanocobalamin [Vitamin B-12] 1,000 mcg PO DAILY 08/22/17 Ipratropium [place] [Atrovent] 0.25 mg IH QID 08/22/17 Spironolactone [Aldactone] 25 mg PO DAILY 08/22/17 ferrous sulfate 325 mg (65 mg iron) tablet 325 mg PO BID #180 tab 03/12/18 furosemide 80 mg tablet 80 mg PO DAILY #90 tab 05/16/18 metformin 500 mg tablet 500 mg PO BIDWM #180 tab 10/19/18 nystatin 100,000 unit/gram topical powder 1 applic TP BID PRN #60 g 11/29/18 lorazepam 0.5 mg tablet 0.5 mg PO BID PRN #180 tab 12/05/18 glipizide 5 mg tablet 5 mg PO DAILY #90 tab 12/10/18 levothyroxine 112 mcg tablet 112 mcg PO DAILY #90 tab 02/26/19 escitalopram oxalate 20 mg tablet 30 mg PO DAILY #135 tab 04/22/19 Acetaminophen 500 mg PO Q6H PRN 05/29/19 Acetaminophen with Codeine [Tylenol-Codeine 300 MG/30 MG] 1 ea PO Q6H PRN 05/29/19 Aspirin [Aspirin Chewable] 81 mg PO DAILY 05/29/19 Dexlansoprazole [Dexilant] 60 mg PO DAILY 05/29/19 Estriol Micronized 1 gm MC HS 05/29/19 Estrogens, Conjugated [Premarin] 0.625 mg PO DAILY 05/29/19 Fesoterodine Fumarate [Toviaz] 4 mg PO DAILY 05/29/19 Gabapentin 1,800 mg PO HS 05/29/19 HYDROcodone/ACETAMINOPHEN [Hydrocodone-Acetamin 5-325 mg] 1 ea PO Q4H PRN 05/29/19 Metoprolol Tartrate [Lopressor] 50 mg PO BID 05/29/19 Modafinil 200 mg PO 0700,1200 05/29/19 Mometasone/Formoterol [Dulera 200 Mcg/5 Mcg Inhaler] 2 puff INHALATION BID 05/29/19 NIFEdipine [Nifedipine ER] 90 mg PO DAILY 05/29/19 Potassium Chloride [Klor-Con M20] 20 meq PO DAILY 05/29/19 Pramipexole Di-HCl [Pramipexole Dihydrochloride] 2 mg PO HS 05/29/19 Simvastatin 40 mg PO QPM 05/29/19 Ziprasidone HCl [Geodon] 40 mg PO HS 05/29/19 lamoTRIgine [Lamictal] 400 mg PO HS 05/29/19 tiZANidine HCL [Tizanidine HCl] 1 mg PO TID PRN 05/29/19 Albuterol Sulfate [Ventolin HFA] 1 puff INHALATION Q4H PRN #1 inhaler 05/30/19 Albuterol Sulfate/Ipratropium [Duoneb 2.5-0.5MG/3ML Soln] 3 ml INHALATION BID PRN #7 nebu 05/30/19 Azithromycin [Zithromax] 250 mg PO DAILY 5 Days #6 tab 05/30/19 Escitalopram Oxalate [Lexapro] 20 mg PO DAILY #60 tab 05/30/19 guaiFENesin [Mucinex] 600 mg PO BID #14 tablet.sa 05/30/19 predniSONE [Prednisone] 2 tab PO DAILY 5 Days #10 tab 05/30/19
[2019-05-30] MEDS: PANTOPRAZOLE SODIUM 40 MG in NORMAL SALINE 100 ML IV SCH (12:52)
[2019-05-30 14:35] VITALS: BP 142/66
[2019-06-10] MEDS ORDERED: Ibandronate Sodium [Boniva] 150 MG PO SCH (06:00)
== END 2019-05-30 15:00 | disposition home or self-care (01) ==
LOC: ER 06:46 → MS 06:46
PROVIDERS: ADMIT Internal Medicine; ATTEND Internal Medicine
CPT/HCPCS: 36415; 71010; 71045; 80053; 81001; 82009; 83519; 83605; 83880; 85025; 87040; 87081; 87400; 87449; 94640; 94660; 94760; 96365; 96366; 96372; 96375; 99285; G0378

== ENCOUNTER 2019-07-19 04:45 | Observation (INO) ==
[2019-07-19] MEDS ORDERED: ACETAMINOPHEN 325 MG TABLET PO ONE (05:09)
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
[2019-07-19 05:25] LABS: Hematocrit 33.7 % (37.0-47.0); Mean Cell Volume 86.6 fl (78-100); Mean Corpuscular Hemoglobin 25.7 pg (27-31); Mean Corpuscular Hgb Conc 29.7 g/dl (32-36); Mean Platelet Volume 9.2 fl (8-12.5); Neutrophil # 10.8 K/mm3 (1.3-6.0); Platelet Count 195 K/mm3 (150-450); Red Blood Count 3.89 M/mm3 (4.2-5.4); Red Cell Distribution Width 15.8 % (11.5-14.0); White Blood Count 12.4 K/mm3 (4.0-10.5)
[2019-07-19 05:33] LABS: Urine Bilirubin Negative (NEGATIVE); Urine Blood Negative /ul (NEGATIVE); Urine Ketone Negative (NEGATIVE); Urine Nitrite Negative (NEGATIVE); Urine Protein 15 mg/dL (NEGATIVE); Urine Specific Gravity >=1.030 SP.GR. (1.005-1.010); Urine Urobilinogen Normal (NORMAL); Urine pH 5.5 pH (5.0-7.0)
[2019-07-19 05:41] LABS: Urine Amorphous Sediment Few - 1+ (NONE-FEW); Urine Appearance Slightly Cloudy (CLEAR); Urine Bacteria 1+; Urine Color Yellow; Urine Hyaline Cast 0-5 /LPF; Urine RBC TRACE /hpf (0-5); Urine WBC 0-5 /hpf (0-5)
[2019-07-19 05:42] LABS: Albumin * 2.9 gm/dl (3.4-5.0); Anion Gap 13.5 mmol/L (6.8-13.8); BUN/Creatinine Ratio 14.1 (9.0-21.6); Bilirubin, Total 0.6 mg/dL (0.0-1.1); Ca. Corrected For Albumin 9.1 mg/dL (8.4-10.2); Calcium * 8.5 mg/dL (7.9-10.9); Carbon Dioxide 29.3 mmol/L (24-32.6); Potassium 3.8 mmol/L (3.4-4.6); Total Protein 6.6 gm/dL (6.2-8.2)
[2019-07-19] MEDS ORDERED: cefTRIAXone SODIUM 1,000 MG/100 ML BAG IV ONE (06:32)
[2019-07-19] MEDS ORDERED: NORMAL SALINE 1,000 ML IV ONE (06:32)
[2019-07-19] MEDS ORDERED: NON-FORMULARY 1 DOSE DOSE IV SCH (06:45)
[2019-07-19] MEDS ORDERED: IBUPROFEN 400 MG TABLET PO ONE (07:18)
[2019-07-19] MEDS ORDERED: AZITHROMYCIN 500 MG in DEXTROSE 5 % IN WATER 250 ML IV ONE ×2 (07:30)
[2019-07-19] MEDS ORDERED: LORATADINE 10 MG TABLET PO PRN (12:08)
[2019-07-19] MEDS ORDERED: NYSTATIN 15 APPL BTL TP PRN (12:08)
[2019-07-19] MEDS ORDERED: LORazepam 0.5 MG TABLET PO PRN (12:08)
[2019-07-19] MEDS ORDERED: ALBUTEROL SULFATE 2.5 MG/0.5 ML VIAL.NEB IH PRN (12:08)
[2019-07-19] MEDS ORDERED: ALBUTEROL SULFATE/IPRATROPIUM 3 ML NEBU IH PRN (12:08)
[2019-07-19] MEDS ORDERED: MOMETASONE FUROATE 120 SPRAY INHALER NS PRN (12:08)
[2019-07-19] MEDS ORDERED: Ibandronate Sodium [Boniva] 150 MG PO SCH (12:15)
[2019-07-19] MEDS: GABAPENTIN 600 MG TABLET PO SCH (14:08)
[2019-07-19] MEDS ORDERED: IPRATROPIUM BROMIDE 0.5 MG/2.5 ML VIAL.NEB IH SCH (15:00)
[2019-07-19] MEDS ORDERED: FLUTICASONE PROPIONATE 120 SPRAY INHALER NS PRN (16:22)
--- NOTE | 2019-07-19 17:13 | PN ---
Subjective - Date and Time Seen Date: 07/19/19 Time: 16:20 Subjective Narrative: Patient with PMHx of recent breast cancer diagnosis receiving radiation, COPD, diabetes, LUDY, hereditary spastic paraplegia presented to the ED after having multiple falls at home. Workup here showed possible PNA on CXR, she was febrile, had a mild white count, elevated procalcitonin, so she was started on treatment for pneumonia. She was unaware she had a fever. She denies shortness of breath, cough increased from baseline, or chest pain. She is not requiring oxygen. Her appetite is mildly decreased. She saw her theatre manager two weeks ago, possibly for chronic cough. She was admitted for treatment of pneumonia. Her main concern is her right knee pain. Xrays in ED showed OA. She feels like her falls are due to her hereditary spastic paraplegia, but she feels safe going back home after DC. Objective - Review of Systems Generalized/Overall Review: Reports: Weakness, Fever EENTM: Denies: Throat Pain Respiratory: Reports: Cough - baseline. Denies: Shortness of Breath Cardiac: Denies: Edema Abdominal: Reports: Abdominal Pain, Constipation. Denies: Vomiting, Diarrhea Genitourinary Symptoms: Denies: Frequency, Dysuria Musculoskeletal Complaints: Reports: Joint Pain - right knee Neurological: Reports: Weakness Skin: Reports: Bruising - Vitals Vitals: Last Vital Signs Temp 36.7 C 07/19/19 12:58 Pulse 85 07/19/19 14:47 Resp 22 H 07/19/19 12:58 BP 130/50 07/19/19 12:58 Pulse Ox 93 07/19/19 12:58 - Abnormal Lab Findings Abnormal Lab Findings: Abnormal Lab Results 07/19/19 07/19/19 07/19/19 Range/Units 05:22 05:22 05:22 WBC 12.4 H (4.0-10.5) K/mm3 RBC 3.89 L (4.2-5.4) M/mm3 Hgb 10.0 L (12.5-16.0) gm/dL Hct 33.7 L (37.0-47.0) % MCH 25.7 L (27-31) pg MCHC 29.7 L (32-36) g/dl RDW 15.8 H (11.5-14.0) % Immature Gran % (Auto) 0.50 H (0.001-0.429) % Immature Gran # (Auto) 0.06 H (0.000-0.0310) K/mm3 Neutrophils % 87.0 H (42-75.0) % Lymphocytes % 5.4 L (20-51) % Neutrophils # 10.8 H (1.3-6.0) K/mm3 Lymphocytes # 0.67 L (1.5-3.5) k/mm3 Random Glucose 189 H (70-110) mg/dL C-Reactive Prot, Quant 26.0 H (0.0-0.9) mg/dL Albumin 2.9 L (3.4-5.0) gm/dl Procalcitonin 1.73 H (0.05-0.50) ng/mL Urine Protein (NEGATIVE) mg/dL Urine Bacteria (NONE) Hyaline Casts (NONE) /LPF 07/19/19 Range/Units 05:30 WBC (4.0-10.5) K/mm3 RBC (4.2-5.4) M/mm3 Hgb (12.5-16.0) gm/dL Hct (37.0-47.0) % MCH (27-31) pg MCHC (32-36) g/dl RDW (11.5-14.0) % Immature Gran % (Auto) (0.001-0.429) % Immature Gran # (Auto) (0.000-0.0310) K/mm3 Neutrophils % (42-75.0) % Lymphocytes % (20-51) % Neutrophils # (1.3-6.0) K/mm3 Lymphocytes # (1.5-3.5) k/mm3 Random Glucose (70-110) mg/dL C-Reactive Prot, Quant (0.0-0.9) mg/dL Albumin (3.4-5.0) gm/dl Procalcitonin (0.05-0.50) ng/mL Urine Protein 15 H (NEGATIVE) mg/dL Urine Bacteria 1+ H (NONE) Hyaline Casts 0-5 H (NONE) /LPF - Exam Constitutional: Present: Alert, Cooperative, No distress, Elderly, Obese Respiratory: Present: lungs clear, normal breath sounds, no respiratory distress Cardiovascular/Chest: Present: regular rate, rhythm Abdomen: Present: soft, nontender Extremity: Absent: lower extremity edema Skin Exam: Present: other - 3 X 1 cm abrasion of right knee Neurologic: Present: normal mood/affect Assessment/Plan Plan Narrative: Patient has a very extensive medication list, and she can not name her meds. Gonzalez verified her meds with [facility], and several medications have not been filled recently, including levothyroxine, lamotrigine, ziprasodone, escitalopram, simvastatin, tizanidine. Will not restart these now, to reduce her pill burden. - Problems/Diagnosis (1) Pneumonia Problem: Acute Narrative: Patient had a fever initially in the ED today, as well as a WBC of 12.4. She was unaware she had a fever, and her cough has not increased from baseline. Chart review shows she was recently prescribed augmentin and levaquin last month, also for pneumonia. CXR showed a new density, suspicious for pneumonia. She was mildly tachycardic in the ED, and her respiratory rate has been 22 this afternoon. With her WBC, tachycardia, tachypnea, and potential PNA, she does meet sepsis criteria, however clinically, she does not appear septic. She reports not feeling ill, just weak. She is oxygenating in the low 90's on room air. Procalcitonin is 1.73, so will continue abx. She received rocephin and azithromycin in the ED, and will continue rocephin, but switch atypical coverage to doxycycline due to limited supply of azithromycin tablets. Potential DC tomorrow. With her fever, cough, and hospitalization, she meets COVID testing criteria. This afternoon, she reports having a negative test two weeks ago with Dr. Manuel. (2) Right knee pain Problem: Acute Narrative: She reports her right knee pain is her main complaint. Xrays done in the ED showed osteoarthritis. She has a skin abrasion on her right knee. She had oxycodone listed on a med list from her theatre manager, and will continue. She can also use biofreeze at home. She has a walker, and her is working on getting a wheelchair. She agreed to using our [facility] home health after DC. (3) Breast cancer Problem: Chronic Qualifiers: Narrative: Continue anastrozole. (4) Hypertension Problem: Chronic Qualifiers: Narrative: BP has been well controlled. Continue home losartan and nifedipine. (5) Diabetes mellitus type 2 in obese Problem: Chronic Narrative: Admission glucose of 189. Will continue home 10 U lantus qhs, glipizide, metformin. (6) COPD (chronic obstructive pulmonary disease) Problem: Chronic Qualifiers: Narrative: She is unsure of a diagnosis behind the pulmonology visit, but she has multiple COPD meds on her list. Continue spiriva, home ventolin. Will hold nebulizer treatments, and can restart if she is negative for COVID. She is oxygenating on room air. (7) LUDY (obstructive sleep apnea) Problem: Chronic
[2019-07-19] MEDS: oxyCODONE HCL 5 MG TABLET PO PRN ×2 (18:53→22:53)
[2019-07-19] MEDS: ACETAMINOPHEN 500 MG TABLET PO PRN (18:53)
[2019-07-19] MEDS: FLUTICASONE PROPION/SALMETEROL 14 PUFF DISK.W.DEV IH SCH (20:57)
[2019-07-19] MEDS ORDERED: FLUTICASONE PROPIONATE 120 SPRAY INHALER NS SCH (21:00)
[2019-07-19] MEDS ORDERED: PRAMIPEXOLE DI-HCL 0.5 MG TABLET PO SCH (21:00)
[2019-07-19] MEDS ORDERED: INSULIN GLARGINE,HUM.REC.ANLOG 100 UNITS/ML VIAL SC SCH (21:00)
[2019-07-19] MEDS ORDERED: ZIPRASIDONE HCL 40 MG CAPSULE PO SCH (21:00)
[2019-07-19] MEDS ORDERED: GABAPENTIN 300 MG CAPSULE PO SCH (21:00)
[2019-07-19] MEDS ORDERED: lamoTRIgine 100 MG TABLET PO SCH (21:00)
[2019-07-19] MEDS ORDERED: NORMAL SALINE 500 ML IV ONE (21:23)
[2019-07-19] MEDS ORDERED: METOPROLOL TARTRATE 50 MG TABLET PO ONE (21:30)
[2019-07-20] MEDS: oxyCODONE HCL 5 MG TABLET PO PRN ×4 (03:09→19:03)
[2019-07-20] MEDS: ACETAMINOPHEN 500 MG TABLET PO PRN (03:09)
[2019-07-20] MEDS ORDERED: PANTOPRAZOLE SODIUM 40 MG TABLET.EC PO SCH (07:00)
[2019-07-20] MEDS ORDERED: LEVOTHYROXINE SODIUM 112 MCG TABLET PO SCH (07:00)
[2019-07-20] MEDS: GABAPENTIN 600 MG TABLET PO SCH ×2 (08:12→14:56)
[2019-07-20] MEDS: FLUTICASONE PROPION/SALMETEROL 14 PUFF DISK.W.DEV IH SCH (08:17)
[2019-07-20] MEDS: DOXYCYCLINE HYCLATE 100 MG TABLET PO SCH ×2 (08:25→19:02)
[2019-07-20] MEDS ORDERED: ESCITALOPRAM OXALATE 10 MG TAB PO SCH (09:00)
[2019-07-20] MEDS ORDERED: ANASTROZOLE 1 MG TABLET PO SCH (09:00)
[2019-07-20] MEDS ORDERED: NIFEdipine 30 MG TAB.SR.24H PO SCH (09:00)
[2019-07-20] MEDS ORDERED: SPIRONOLACTONE 25 MG TABLET PO SCH (09:00)
[2019-07-20] MEDS ORDERED: LOSARTAN POTASSIUM 50 MG TABLET PO SCH (09:00)
[2019-07-20] MEDS ORDERED: FUROSEMIDE 80 MG TABLET PO SCH (09:00)
[2019-07-20] MEDS ORDERED: ASPIRIN 81 MG TAB.CHEW PO SCH (09:00)
[2019-07-20] MEDS ORDERED: glipiZIDE 5 MG TABLET PO SCH (09:00)
[2019-07-20] MEDS ORDERED: TOLTERODINE TARTRATE 2 MG CAPSULE PO SCH (09:00)
[2019-07-20] MEDS ORDERED: METOPROLOL TARTRATE 50 MG TABLET PO SCH (09:00)
[2019-07-20] MEDS ORDERED: TIOTROPIUM BROMIDE 5 CAP INHALER IH SCH (09:00)
--- NOTE | 2019-07-20 17:22 | DS ---
Hospital Course: She came to the hospital after multiple falls at home likely due to her chronic knee pain. She was brought into the hospital for fever, elevated WBC, and possible PNA. On day of discharge she denied productive cough or shortness of breath though she continues to have random fevers (likely due to her PNA). She will be sent home with abx to complete treatment. She will follow uo with her PCP in 1-2 weeks. Aside from her fevers, her vitals have been stable. She has hx of breast cancer currently on radiation, COPD, DM, severe OA of right knee. COVID testing negative. She was in a negative pressure room while here. Currently on day of discharge her only concern was her knee pain. Plan is for her to receive HHC as she is weak from decondtioning again due to her knee pain. No changes to her other meds. F[facility] to FACE for HHC Trang Serrato is homebound due to her severe deconditioning from her breast cancer and chronic intractable knee pain. The need for intermediate is for help with managing her home medications and to help with management of new and current medical diagnosis. THe need for physical therapy is for her to strengthen her core and RLE muscles to help stabilize her gait to hopefully prevent falls in the future. Patient also requires bath aide to help with her ADLs and IADLs as patient struggles with completing them. The need for HHC service is directly related to the time spent face to face with the patient. Procedures Performed: none Results and Findings: Pending Mircobiology Results 07/19/19 05:30 Urine,Catheterized Urine Culture - Preliminary No Growth 07/19/19 05:55 Blood Blood Culture - Preliminary NO GROWTH 24 HOURS 07/19/19 05:22 Blood Blood Culture - Preliminary NO GROWTH 24 HOURS Lab Pending Results 07/19/19 05:22: WBC 12.4 H, RBC 3.89 L, Hgb 10.0 L, Hct 33.7 L, MCV 86.6, MCH 25.7 L, MCHC 29.7 L, RDW 15.8 H, Plt Count 195, MPV 9.2, Immature Gran % (Auto) 0.50 H, Immature Gran # (Auto) 0.06 H, Neutrophils % 87.0 H, Lymphocytes % 5.4 L, Monocytes % 6.5, Eosinophils % 0.3, Basophils % 0.3, Nucleated RBC % 0.0, Neutrophils # 10.8 H, Lymphocytes # 0.67 L, Monocytes # 0.8, Eosinophils # 0.0, Absolute Basophils 0.0 07/19/19 05:22: Sodium 139, Plasma Sodium 140, Potassium 3.8, Chloride 100, Carbon Dioxide 29.3, Anion Gap 13.5, BUN 13, Creatinine 0.92, Est GFR (Non-Af Amer) 64 D, BUN/Creatinine Ratio 14.1, Random Glucose 189 H, Calcium 8.5, Calcium Adj for Albumin 9.1, Total Bilirubin 0.6, AST 19, ALT 21, Alkaline Phosphatase 85, C-Reactive Prot, Quant 26.0 H, Total Protein 6.6, Albumin 2.9 L 07/19/19 05:22: Procalcitonin 1.73 H 07/19/19 05:22: Lactic Acid, Venous 2.0 07/19/19 05:30: Urine Color Yellow, Urine Appearance Slightly cloudy, Urine pH 5.5, Ur Specific [place] >=1.030, Urine Protein 15 H, Urine Glucose (UA) Negative, Urine Ketones Negative, Urine Blood Negative, Urine Nitrate Negative, Urine Bilirubin Negative, Prot Sulfosalicylic Acd 1+, Urine Urobilinogen Normal, Ur Leukocyte Esterase Negative, Urine RBC Trace, Urine WBC 0-5, Ur Epithelial Cells None seen, Amorphous Sediment Few - 1+, Urine Bacteria 1+ H, Hyaline Casts 0-5 H, Urine Culture Comments Culture to follow 07/19/19 06:47: Chlamy pneumoniae PCR Not detected, Adenovirus (PCR) Not detected, B. pertussis DNA (PCR) Not detected, Coronavirus OC43 (PCR) Not detected, Coronavirus HKU1 (PCR) Not detected, Coronavirus 229E (PCR) Not detected, Coronavirus NL63 (PCR) Not detected, Human Metapneumovir PCR Not detected, Influenza A (H1) PCR Not detected, Influenza A (H1N1) PCR Not detected, Influenza A (H3) PCR Not detected, Influenza B (RT-PCR) Not detected, M. pneumoniae (PCR) Not detected, Parainfluenza 1 (PCR) Not detected, Parainfluenza 2 (PCR) Not detected, Parainfluenza 3 (PCR) Not detected, Parainfluenza 4 (PCR) Not detected, RSV (PCR) Not detected, Rhinovirus (PCR) Not detected 07/19/19 07:42: SARS-CoV-2 (PCR) Not detected Discharge Location: Home Disposition: Home Health Service Home Health Agency: [facility] Condition: Stable Face to Face Encounter completed per [facility] Guidelines: Yes Discharge Activity: Activity as tolerated Discharge Diet: General/regular food Referrals: Marcia Dumont MD [Primary Care Provider] - Two Weeks Additional Patient Instructions (free text): [facility] new at discharge. Please fax orders and call report on discharge. [phone] is the phone number. Prescriptions (Any new or edited meds): Doxycycline Hyclate 100 mg PO BID #14 tablet.dr Transmission Status: Pending to [facility] oxyCODONE HCL [Oxycodone] 5 mg PO Q6H PRN #60 tab PRN Reason: Pain Transmission Status: Received by [facility] Complete Home Medications List: Complete Home Medication List: Irbesartan [Avapro] 300 mg PO DAILY 07/18/16 Blood-Glucose Meter [Blood Glucose Monitoring] 1 ea MC DAILY 08/22/17 lorazepam 0.5 mg tablet 0.5 mg PO BID PRN #180 tab 12/05/18 Acetaminophen 500 mg PO Q6H PRN 05/29/19 Aspirin [Aspirin Chewable] 81 mg PO DAILY 05/29/19 Dexlansoprazole [Dexilant] 60 mg PO DAILY 05/29/19 Gabapentin 600 mg PO 0900,1300 05/29/19 Metoprolol Tartrate [Lopressor] 50 mg PO DAILY 05/29/19 Mometasone/Formoterol [Dulera 200 Mcg-5 Mcg Inhaler] 2 puff INHALATION DAILY 05/29/19 NIFEdipine [Nifedipine ER] 90 mg PO DAILY 05/29/19 Albuterol Sulfate [Ventolin HFA] 1 puff INHALATION Q4H PRN #1 inhaler 05/30/19 spironolactone 50 mg tablet 50 mg PO DAILY #30 tab 06/19/19 metformin 1,000 mg tablet 1,000 mg PO BID #60 tab 07/02/19 Anastrozole [Arimidex] 1 mg PO DAILY 07/19/19 Fesoterodine Fumarate [Toviaz] 4 mg PO DAILY 07/19/19 Fluticasone Propionate [Flonase Allergy Relief] 1 spray NS BID PRN 07/19/19 Gabapentin 900 mg PO HS 07/19/19 Insulin Glargine,Hum.rec.anlog [Lantus Solostar] 10 unit SQ HS 07/19/19 Tiotropium [place] [Spiriva Respimat 2.5 mcg/inhalation] 1 puff INHALATION BID 07/19/19 glipiZIDE [Glipizide] 5 mg PO QAM 07/19/19 Doxycycline Hyclate 100 mg PO BID #14 tablet. 07/20/19 oxyCODONE HCL [Oxycodone] 5 mg PO Q6H PRN #60 tab 07/20/19
[2019-07-20 19:53] VITALS: BP 127/79
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
== END 2019-07-20 19:54 | disposition home health service (06) ==
LOC: ER 04:45 → MS 04:45
PROVIDERS: ADMIT Family Medicine; ATTEND Family Medicine
CPT/HCPCS: 36415; 71010; 71045; 73562; 80053; 81001; 83605; 84145; 85025; 86140; 87040; 87081; 87086; 87633; 94660; 96361; 96365; 96366; 96367; 99284; 99285; G0378